=== PATIENT | male | born 1960 | race Caucasian/White ===

== ENCOUNTER 2017-10-20 10:09 | Inpatient (IN) | payer MEDICARE, MEDICAID ==
[~2017-10-20] VITALS: Ht 170.2 cm; Wt 75.3 kg
[2017-10-20] VITALS (20 sets, daily range): BP systolic 99–113; BP diastolic 68–80
[~2017-10-20 10:09] MED LIST changes: -AMOX1TAB9 PO; -CALC-515 PO; -MULT1TAB64 PO; -THIA100T20 PO
--- NOTE | 2017-10-20 10:26 | ER Report ---
History and Physical Time Seen By MD: 10:26 Hx. of Stated Complaint: BINGE DRINKING FOR APPROX 1 MONTH. SEIZURE THIS AM. UNSURE OF LAST DRINK. REPROTS THAT HE BELIEVES HE HAS NEVER A HAD A SEIZURE WHILE DETOXING. PT DENIES PAIN OR DISCOMFORT. ALERT AND ORIENTED X 2 UPON ARRIVAL. HPI/ROS CHIEF COMPLAINT: Alcohol withdrawal seizure HISTORY OF PRESENT ILLNESS: This is a 57 year old male. He has been drinking heavily for about 1 month. He drinks about 3-4 pints of Vodka daily. Last drink last night. Girlfriend was present when he fell today and started seizing. He had been very shaky this morning. He denies any pain, but does have some mild confusion. He does not think he has ever had a seizure in the past when detoxing from alcohol. He was alert and oriented x2 on arrival from EMS. His girlfriend is at bedside at this time. His sister is going to be here as well. No report of recent illnesses. He is reported to fall all the time. He denies pain, but has multiple bruises. Unknown if he has any liver problems at this time. REVIEW OF SYSTEMS: Unable to obtain other than above. Allergies: Coded Allergies: trazodone (Verified Allergy, Intermediate, RASH, 10/20/17) quetiapine (Verified Adverse Reaction, Intermediate, DONT FEEL GOOD, ) Home Meds Reported Medications Calcium Carbonate (TUMS) 200 Mg Tab.chew, 200 MG PO Y for HEARTBURN, TAB.CHEW 10/20/17 Discontinued Reported Medications Ubidecarenone (COQ-10) 100 Mg Capsule, 1 CAP PO QDAY, CAPSULE 12/19/15 Hydroxyzine Hcl (HYDROXYZINE HCL) 50 Mg Tablet, 1 TAB PO QID Y for anxiety, sleeplessness 12/19/15 Sertraline Hcl (SERTRALINE HCL) 100 Mg Tablet, 1 TAB PO QDAY, TAB 12/19/15 Past Medical/Surgical History History of "infectious asthma", arthritis, chronic alcohol use, history of surgery for left arm/wrist fracture as a child Reviewed Nurses Notes: Yes Hx Smoking: Yes Smoking Status: Former Smoker Exposure to Second Hand Smoke?: Yes Hx Substance Use Disorder: No Hx Alcohol Use: Yes (VODKA, ONE PINT DAILY) Constitutional Vital Sign - Last 24 Hours 10/20/17 10/20/1710/20/18 10/20/17 10:09 10:10 10:14 10:15 Temp 98.6 Pulse ??? 118 115 Resp 20 23 B/P (MAP) 134/82 (99) 134/82 Pulse Ox 73 89 O2 Delivery Room Air O2 Flow Rate 6.0 10/20/17 10/20/17 10/20/17 10/20/17 10:19 10:24 10:29 10:30 Pulse 110 ??? 111 Resp 24 78 38 B/P (MAP) ???/??? (7803) Pulse Ox 90 92 18 //18 //18 10/20/17 10:34 10:39 10:44 10:54 Pulse 108 95 122 111 Resp 17 14 18 B/P (MAP) 168/102 (124) Pulse Ox 83 10/20/17 10/20/17/10/20/17 10:59 11:00 11:04 11:09 Pulse 121 113 ??? Resp 14 18 B/P (MAP) 143/92 (109) Pulse Ox 93 91 10/20/10/20/17/10/20/17 11:14 11:19 11:24 11:29 Pulse ? 10/20/17 10/20/17 10/20/17 10/20/17 11:30 11:34 11:38 11:39 Pulse ??? 110 Resp 20 B/P (MAP) ???/??? (3964) 129/95 (106) Pulse Ox 93 18 10/20/17//10/20/17 11:44 11:49 11:54 11:59 Pulse 106 104 103 105 Resp 20 20 23 Pulse Ox 90 92 92 93 10/20/22 10//22 10//10/20/17 12:00 12:04 12:04 12:09 Pulse 105 105 105 Resp 22 22 18 B/P (MAP) 133/90 (104) Pulse Ox 91 91 90 10/20/18 //18 //18 10/20/17 12:14 12:15 12:19 12:20 Pulse 112 103 Resp 33 20 B/P (MAP) 117/76 (90) 117/79 (92) Pulse Ox 91 90 7/16/18 7/16/18 7/16/18 7/16/18 12:24 12:25 12:27 12:27 Pulse 104 Resp 15 B/P (MAP) 135/105 (115) Pulse Ox 91 96 O2 Delivery Mechanical Ventilator FiO2 60.0 60.0 //18 //18 //18 10/20/17 12:29 12:30 12:34 12:35 Pulse 128 108 Resp 17 18 B/P (MAP) 204/130 (154) 110/74 (86) Pulse Ox 97 92 /16/18 /16/18 7/16/18 / 12:39 12:40 12:44 12:45 Pulse 98 98 Resp 18 120 B/P (MAP) 101/63 (76) 102/69 (80) Pulse Ox 95 97 /16/18 //18 7/16/18 10/20/17 12:50 12:54 12:55 12:59 Pulse 91 90 Resp 48 18 B/P (MAP) 106/96 (99) 120/85 (97) Pulse Ox 96 94 /16/18 7/16/18 7/16/18 //18 13:00 13:04 13:05 13:09 Pulse 89 87 Resp 17 17 B/P (MAP) 99/67 (78) 105/68 (80) Pulse Ox 93 94 /16/18 7/16/18 7/16/18 //18 13:10 13:14 13:15 13:19 Pulse 90 ??? Resp 21 B/P (MAP) 102/68 (79) 111/76 (88) Pulse Ox 96 /16/18 7/16/18 7/16/18 /16/18 13:20 13:24 13:25 13:29 Pulse ? B/P (MAP) ???/??? (951) ???/??? (767) //18 /16/18 /16/18 /18 13:30 13:34 13:39 13:41 Pulse ? B/P (MAP) ???/??? (9910) 119/80 (93) 16/18 7/16/18 7/16/18 7/16/18 13:44 13:46 13:49 13:50 Pulse 84 83 Resp 19 17 B/P (MAP) 106/73 (84) 103/72 (82) Pulse Ox 96 91 16/18 7/16/18 7/16/18 7/16/18 13:54 13:55 13:59 14:00 Pulse 82 82 Resp 18 17 B/P (MAP) 105/75 (85) 106/73 (84) Pulse Ox 90 90 16/18 7/16/18 7/16/18 7/16/18 14:00 14:04 14:05 14:09 Temp 101.1 Pulse 82 82 Resp 18 17 B/P (MAP) 104/71 (82) Pulse Ox 91 90 16/18 7/16/18 7/16/18 7/16/18 14:10 14:14 14:15 14:19 Pulse 81 81 Resp 18 18 B/P (MAP) 100/69 (79) 101/69 (80) Pulse Ox 91 91 16/18 7/16/18 7/16/18 /1618 14:20 14:24 14:25 14:29 Pulse 81 81 Resp 17 18 B/P (MAP) 101/68 (79) 112/79 (90) Pulse Ox 91 92 16/18 /16/18 7/16/18 /1618 14:30 14:34 14:35 14:39 Pulse 80 79 Resp 18 18 B/P (MAP) 117/83 (94) 113/82 (92) Pulse Ox 94 94 /16/18 /16/18 /16/18 /1618 14:40 14:44 14:45 14:49 Pulse 79 79 Resp 18 17 B/P (MAP) 105/75 (85) 101/70 (80) Pulse Ox 94 94 /16/18 7/16/18 7/16/18 /16/18 14:54 14:59 15:00 15:04 Pulse 78 79 78 Resp 17 18 18 B/P (MAP) 98/70 (79) Pulse Ox 94 94 94 /16/18 7/16/18 7/16/18 /16/18 15:09 15:14 15:15 15:19 Pulse 78 78 80 Resp 18 B/P (MAP) 96/70 (79) Pulse Ox 94 94 95 Physical Exam General Appearance: The patient is alert. He is a little confused, but can answer some questions. Extremely shaky. Incontinent of stool. Eyes: Pupils are equal, round. Reactive to light. No pallor, injection or icterus. Extraocular movements are intact. ENT: Mucous membranes are diet. Normal oral mucosa. Posterior oropharynx is normal. Normal nasal mucosa, normal TM and canals. Neck: Supple and non tender. Respiratory: Lungs diminished throughout, do not appreciate rales, rhonchi or wheezing. No retractions or accessory muscle use. Cardiovascular: Regular rate and rhythm. No murmurs, gallops or rubs. Gastrointestinal: Abdomen is soft and non tender. Nondistended. No rebound or guarding. No masses or organomegaly. Normal active bowel sounds. Neurological: Alert and oriented x2. Cranial nerves with eye exam as noted above , midline tongue and symmetric palate elevation. No facial droop or weakness. Moving all extremities. No focal weakness noted. Having some increasing confusion and agitation. Skin: Warm and dry. Musculoskeletal: Extremities are nontender. No tenderness in palpation of the cervical, thoracic and lumbar spine. DIFFERENTIAL DIAGNOSIS: After history and physical exam, differential diagnosis was considered for acute alcohol withdrawal seizure, with some increasing confusion, this appears to be Delirium Tremens. Medical Decision Making Data Points Result Diagram: 10/20/17 1020 10/21/17 0535 Laboratory Hematology Test 10/20/17 10:20 10/20/17 10:30 10/20/17 14:02 Red Blood Count 5.02 M/uL (4.00-5.60) Mean Corpuscular Volume 92.8 fL (80.0-96.0) Mean Corpuscular Hemoglobin 31.5 pg (26.0-33.0) Mean Corpuscular Hemoglobin Concent 33.9 g/dL (32.0-36.0) Red Cell Distribution Width 19.7 % (11.5-14.5) Mean Platelet Volume 7.4 fL (7.2-11.1) Neutrophils (%) (Auto) 78.0 % (39.4-72.5) Lymphocytes (%) (Auto) 14.1 % (17.6-49.6) Monocytes (%) (Auto) 7.1 % (4.1-12.4) Eosinophils (%) (Auto) 0.2 % (0.4-6.7) Basophils (%) (Auto) 0.6 % (0.3-1.4) Nucleated RBC Relative Count (auto) 0.2 /100WBC Neutrophils # (Auto) 5.5 K/uL (2.0-7.4) Lymphocytes # (Auto) 1.0 K/uL (1.3-3.6) Monocytes # (Auto) 0.5 K/uL (0.3-1.0) Eosinophils # (Auto) 0.0 K/uL (0.0-0.5) Basophils # (Auto) 0.0 K/uL (0.0-0.1) Nucleated RBC Absolute Count (auto) 0.01 K/uL Thyroid Stimulating Hormone (TSH) 3.71 uIU/ml (0.46-4.68) Salicylates Level < 10 mg/L Salicylate Last Dose Date unk Acetaminophen Level < 10 ug/ml Serum Alcohol < 10 mg/dl Urine Color Yellow Urine Clarity Clear Urine pH 7.0 pH (4.8-9.5) Urine Specific [place] 1.013 Urine Protein 100 mg/dL (NEGATIVE) Urine Glucose (UA) 500 mg/dL (NEGATIVE) Urine Ketones Trace mg/dL (NEGATIVE) Urine Blood Small (NEGATIVE) Urine Nitrite Negative (NEGATIVE) Urine Bilirubin Negative (NEGATIVE) Urine Urobilinogen 2.0 mg/dL (0.2-1.9) Urine Leukocyte Esterase Negative (NEGATIVE) Urine RBC <1 /HPF (0-2/HPF) Urine WBC None /HPF (0-5/HPF) Urine Squamous Epithelial Cells None /LPF (</=FEW) Urine Bacteria Negative /HPF (NONE-FEW) Urine Mucus None /HPF (NONE-FEW) Urine Opiates Screen Negative Urine Barbiturates Screen Negative Ur Tricyclic Antidepressants Screen Negative Urine Phencyclidine Screen Negative Urine Amphetamines Screen Negative Urine Benzodiazepines Screen Negative Urine Cocaine Screen Negative Urine Cannabinoids Screen Negative Prothrombin Time 13.1 seconds (12.0-14.4) Prothromb Time International Ratio 0.99 Chemistry Test 10/20/17 10:20 7/16/18 10:30 10/20/17 14:02 White Blood Count 7.1 k/uL (4.5-11.0) Red Blood Count 5.02 M/uL (4.00-5.60) Hemoglobin 15.8 g/dL (14.0-18.0) Hematocrit 46.6 % (42.0-52.0) Mean Corpuscular Volume 92.8 fL (80.0-96.0) Mean Corpuscular Hemoglobin 31.5 pg (26.0-33.0) Mean Corpuscular Hemoglobin Concent 33.9 g/dL (32.0-36.0) Red Cell Distribution Width 19.7 % (11.5-14.5) Platelet Count 100 K/uL (150-450) Mean Platelet Volume 7.4 fL (7.2-11.1) Neutrophils (%) (Auto) 78.0 % (39.4-72.5) Lymphocytes (%) (Auto) 14.1 % (17.6-49.6) Monocytes (%) (Auto) 7.1 % (4.1-12.4) Eosinophils (%) (Auto) 0.2 % (0.4-6.7) Basophils (%) (Auto) 0.6 % (0.3-1.4) Nucleated RBC Relative Count (auto) 0.2 /100WBC Neutrophils # (Auto) 5.5 K/uL (2.0-7.4) Lymphocytes # (Auto) 1.0 K/uL (1.3-3.6) Monocytes # (Auto) 0.5 K/uL (0.3-1.0) Eosinophils # (Auto) 0.0 K/uL (0.0-0.5) Basophils # (Auto) 0.0 K/uL (0.0-0.1) Nucleated RBC Absolute Count (auto) 0.01 K/uL Thyroid Stimulating Hormone (TSH) 3.71 uIU/ml (0.46-4.68) Salicylates Level < 10 mg/L Salicylate Last Dose Date unk Acetaminophen Level < 10 ug/ml Serum Alcohol < 10 mg/dl Urine Color Yellow Urine Clarity Clear Urine pH 7.0 pH (4.8-9.5) Urine Specific [place] 1.013 Urine Protein 100 mg/dL (NEGATIVE) Urine Glucose (UA) 500 mg/dL (NEGATIVE) Urine Ketones Trace mg/dL (NEGATIVE) Urine Blood Small (NEGATIVE) Urine Nitrite Negative (NEGATIVE) Urine Bilirubin Negative (NEGATIVE) Urine Urobilinogen 2.0 mg/dL (0.2-1.9) Urine Leukocyte Esterase Negative (NEGATIVE) Urine RBC <1 /HPF (0-2/HPF) Urine WBC None /HPF (0-5/HPF) Urine Squamous Epithelial Cells None /LPF (</=FEW) Urine Bacteria Negative /HPF (NONE-FEW) Urine Mucus None /HPF (NONE-FEW) Urine Opiates Screen Negative Urine Barbiturates Screen Negative Ur Tricyclic Antidepressants Screen Negative Urine Phencyclidine Screen Negative Urine Amphetamines Screen Negative Urine Benzodiazepines Screen Negative Urine Cocaine Screen Negative Urine Cannabinoids Screen Negative Prothrombin Time 13.1 seconds (12.0-14.4) Prothromb Time International Ratio 0.99 Coagulation Test 10/20/17 14:02 Prothrombin Time 13.1 seconds Prothromb Time International Ratio 0.99 Toxicology Test 10/20/17 10:20 10/20/17 10:30 Salicylates Level < 10 mg/L Salicylate Last Dose Date unk Acetaminophen Level < 10 ug/ml Serum Alcohol < 10 mg/dl Urine Opiates Screen Negative Urine Barbiturates Screen Negative Ur Tricyclic Antidepressants Screen Negative Urine Phencyclidine Screen Negative Urine Amphetamines Screen Negative Urine Benzodiazepines Screen Negative Urine Cocaine Screen Negative Urine Cannabinoids Screen Negative Urinalysis Test 10/20/17 10:30 Urine Color Yellow Urine Clarity Clear Urine pH 7.0 pH (4.8-9.5) Urine Specific [place] 1.013 Urine Protein 100 mg/dL (NEGATIVE) Urine Glucose (UA) 500 mg/dL (NEGATIVE) Urine Ketones Trace mg/dL (NEGATIVE) Urine Blood Small (NEGATIVE) Urine Nitrite Negative (NEGATIVE) Urine Bilirubin Negative (NEGATIVE) Urine Urobilinogen 2.0 mg/dL (0.2-1.9) Urine Leukocyte Esterase Negative (NEGATIVE) Urine RBC <1 /HPF (0-2/HPF) Urine WBC None /HPF (0-5/HPF) Urine Squamous Epithelial Cells None /LPF (</=FEW) Urine Bacteria Negative /HPF (NONE-FEW) Urine Mucus None /HPF (NONE-FEW) EKG/Imaging EKG Interpretation 12 lead EKG: Rhythm: Sinus tachycardia, rate 110 [place]: normal QRS: Question Q waves inferior leads, not present in lead 2, minimal aVF but large in lead 3 ST segments: Nonspecific changes without ST elevation or depression, but there are some T-wave inversion in the V leads. Imaging EXAMINATION: Portable chest radiograph single view at 1158 hours HISTORY: Seizure, alcohol withdrawal. COMPARISON: 11/20/2016. FINDINGS: A single portable AP view of the chest is obtained. Lines/tubes: None. Lungs/pleura: There is coarse consolidation in the left mid and lower lung. Right lung is clear. No pleural effusion. Heart: Negative. Mediastinum: Negative. Bony structures/body wall: Old healed right rib fractures. IMPRESSION: Patchy consolidation in the left mid and lower lung could be due to aspiration or pneumonia. Report Dictated By: Shirley Su MD at 10/20/2017 12:22 PM EXAMINATION: CT head without IV contrast HISTORY: Seizure, alcohol withdrawal. COMPARISON: CT head from 02/18/2015. TECHNIQUE: Contiguous axial images were obtained from the skull base to the vertex without intravenous contrast. Sagittal and coronal reformatted images are also submitted. One of the following dose optimization techniques was utilized in the performance of this exam: Automated exposure control; adjustment of the mA and/ or kV according to the patient's size; or use of an iterative reconstruction technique. Specific details can be referenced in the facility's radiology CT exam operational policy. FINDINGS: Brain volume: There is mild to moderate generalized cerebral and cerebellar atrophy, with associated concordant prominence of the ventricular system. Ventricles: Normal. Acute ischemic changes: None. Hemorrhage: No acute intracranial hemorrhage. Masses/edema: None. Dash-white: Negative. White matter: A few hypodensities in the deep white matter bilaterally. Vessels: Negative. Extra-axial: Negative. Calvarium/scalp: No acute fracture. Skull base/visualized face: Negative. Visualized sinuses/orbits: Negative. IMPRESSION: 1. No acute fracture, hemorrhage or intracranial mass lesion. No CT evidence of acute infarct. 2. [id number] generalized atrophy is advanced for age. 3. Mild nonspecific white matter disease is suspicious for chronic small vessel ischemia, and is unchanged. Report Dictated By: Shirley Su MD at 10/20/2017 11:38 AM EXAMINATION: CT Cervical spine without intravenous contrast Comparison: None. History: alcohol withdrawal, falls, seizures Procedure: Multiplanar noncontrast cervical spine CT. One of the following dose optimization techniques was utilized in the performance of this exam: Automated exposure control; adjustment of the mA and/ or kV according to the patient's size; or use of an iterative reconstruction technique. Specific details can be referenced in the facility's radiology CT exam operational policy. FINDINGS: Visualized brain: More fully characterized on the earlier noncontrast head CT. Alignment: Within normal limits. Cranio-cervical junction: Alignment is within normal limits although there is moderately advanced degenerative change at the atlantodens interval. Vertebral bodies: No fracture. Posterior neural arch: Facet alignment is within normal limits with minimal facet arthropathy. No posterior neural arch fracture. Disc spaces: Moderate degenerative disc disease at C6-C7 with minimal degenerative change elsewhere. There is likely mild canal stenosis as well as moderate foraminal narrowing at C6-C7. Hardware: None. Soft tissues: Intubation. Carotid atherosclerosis. No acute findings. Visualized upper chest: Negative. IMPRESSION: 1. No cervical spine acute fracture or malalignment. 2. Cervical degenerative change as described above. 3. Carotid atherosclerosis. 4. Intubated. Report Dictated By: Edison Alston MD at 10/20/2017 2:34 PM Examination: CT chest, abdomen, and pelvis with contrast; and post processed thoracic and lumbar spine CT. Comparison: None. History: alcohol withdrawal, falls, seizures Procedure: Multiplanar contrast-enhanced imaging of the chest, abdomen, and pelvis with 75 mL intravenous Isovue 370. Additional multiplanar post processed images of the thoracic and lumbar spine are evaluated. One of the following dose optimization techniques was utilized in the performance of this exam: Automated exposure control; adjustment of the mA and/ or kV according to the patient's size; or use of an iterative reconstruction technique. Specific details can be referenced in the facility's radiology CT exam operational policy. Findings: CT chest: Mediastinum: Cardiac chamber size is normal. No pericardial effusion. Coronary calcifications. No thoracic aortic aneurysm or dissection. No mediastinal hematoma. Thyroid is unremarkable. There are a few nonspecific but likely reactive mediastinal lymph nodes. Lungs and pleura: Left upper lobe and to lesser extent left lower lobe multifocal consolidation. Pulmonary hyperexpansion with mild apical emphysema. No pneumothorax or effusion. Airways: Airways are patent with no definite evidence of intraluminal debris/ secretions. Tip of the endotracheal tube is approximately 2.5 cm above the sweetie. Diaphragm: Intact. CT abdomen and pelvis: Liver: Hepatic steatosis. Gallbladder and biliary system: Negative Spleen: Negative Pancreas: Negative Adrenal glands: Negative Kidneys and urinary bladder: No renal mass or hydronephrosis. No perinephric stranding or fluid. Urinary bladder contains a Wilkinson catheter. Vessels: Aortoiliac moderate atherosclerosis. No abdominal aortic aneurysm. No retroperitoneal hemorrhage. Portal venous system and IVC are unremarkable. Bowel and mesentery: Tiny hiatal hernia. No gastric distention. No small bowel obstruction. Appendix is unremarkable. Minimal stool in the colon. Left hemicolon moderate diverticulosis. No bowel or mesenteric inflammation. Pelvic organs: Negative. Free air/free fluid: None Lymph nodes: Negative Abdominal wall and subcutaneous tissues: Small fat-containing umbilical hernia. Small fat-containing right inguinal hernia. No acute findings. Osseous structures: Thoracic spine: Mild chronic-appearing anterior compression at the thoracolumbar junction with chronic appearing mild concavities of the T4, T5, and T6 vertebral bodies. No acute fracture or malalignment. No definite spinal canal stenosis is identified. Mild multilevel degenerative disc disease. Lumbar spine: Vertebral body height and alignment is within normal limits. Thoracolumbar, facet, and lumbosacral alignment is maintained. No fracture. Disc spaces are fairly well-maintained with no evidence of spinal canal narrowing. Pelvic ring: No fracture. Right hip mild osteoarthritis. Ribs: Chronic nonunited fracture the right posterior seventh rib. Chronic healed deformities of the right sixth, lateral seventh seventh, eighth, and ninth ribs. No acute findings. Visualized sternum, scapula, and clavicles: Negative IMPRESSION: 1. Left lung multifocal consolidation. Given the history, the findings are suspicious for an asymmetric aspiration although pneumonia could have this appearance as well. 2. No other findings of trauma or acute disease in the chest, abdomen, or pelvis. 3. Nonacute findings as described above. Report Dictated By: Edison Alston MD at 10/20/2017 2:39 PM ED Course/Re-evaluation Clinical Indication for ER IV: Hydration, IV Access ED Course After my initial evaluation, the patient was given 2mg of IV Ativan because of how severe his symptoms were. CIWA scale done immediately after this was 26. Started having more confusion, agitation, and somewhat combative. A second dose of Ativan 2mg IV was given, without improvement. A third dose was given, and he was improved, but also very sedated. He had a CT scan and an x-ray. No bleeding , fracture or mass on CT head. Chest shows patchy consolidation mid and left lower lung. Re-evaluation shows sedation and did not feel he would be able to protect his airway and having confusion. Recommended intubation to protect airway, especially given that he appears to have aspiration pneumonia already. Discussed this with his girlfriend and explained and answered all questions. Labs show mild low sodium of 132 and chloride of 94, magnesium of 1.2 otherwise electrolytes look okay. Mild elevation of liver enzymes with normal alk phos and bilirubin. Platelets down at 100, rest of CBC is normal. Negative alcohol. Procedure: Rapid sequence intubation. Indication for the procedure was airway protection, severe alcohol withdrawal. The patient was preoxygenated with 100% oxygen by bag-valve mask. The patient was given the following IV medications: Etomidate and succinylcholine. The patient was orally endotracheally intubated using the Glidescope with a 7.0 ETT. Tracheal intubation was confirmed by direct visualization; with misting on the tube; breath sounds were auscultated equally bilaterally; appropriate color change with CO2 detector. The patient was placed on the capnography monitor. Chest imaging shows ETT in good position. The procedure was performed by myself. After intubation, the patient did well, but became very agitated and combative. Had started Propofol 10mcg/kg/min drip for sedation and rapidly titrated up to 20, then 30 then 35mcg/kg/min. Also gave 4 boluses of Propofol 50mg IVP and 3 boluses of Versed 5mg IVP each. He seems more comfortable and blood pressure has come down, but not too low at this time. CT scan of the c-spine and the chest/abdomen/pelvis as well as thoracic and lumber spine was done as well and negative for acute problems. Admitted to the ICU, Dr. Villa, hospitalist. Decision to Disposition Date: Oct 20, 2017 Decision to Disposition Time: 13:15 Depart Departure Latest Vital Signs Vital Signs Date Time Temp Pulse Resp B/P (MAP) Pulse Ox O2 Delivery O2 Flow Rate FiO2 10/20/17 15:19 80 18 95 10/20/17 15:15 96/70 (79) 10/20/17 14:00 101.1 10/20/17 12:27 Mechanical Ventilator 60.0 10/20/17 10:15 6.0 Impression: Primary Impression: Alcohol withdrawal seizure Condition: Condition Unchanged Disposition: Admitted from ER Problem Qualifiers Primary Impression: Alcohol withdrawal seizure Complication of substance-induced condition: with delirium Qualified Codes: F10.231 - Alcohol dependence with withdrawal delirium LINDSEY MORA MD Oct 20, 2017 10:26
[2017-10-20] MEDS ORDERED: THIAMINE HCL(*) 200 MG/2 ML IN 100 MG, FOLIC ACID(*) 50 MG/10 ML INJ 1 MG, MULTIVITAMIN... IV ONE (10:48)
[2017-10-20] MEDS ORDERED: LORazepam 2 MG/ML VIAL ONE ×2 (10:49→11:43)
[2017-10-20] MEDS ORDERED: LORazepam 2 MG/ML VIAL IVP ONE (10:50)
[2017-10-20 11:03] LABS: PLATELET COUNT, AUTOMATED 100 K/uL (150-450)
--- NOTE | 2017-10-20 11:48 | RADIOLOGY IMAGING REPORT ---
FACILITY: [facility] PATIENT NAME: Richar Bermeo : 1960 MR: [id number] V: [id number] EXAM DATE: ORDERING PHYSICIAN: LINDSEY MORA TECHNOLOGIST: [place] [facility] [place] Patient: Richar Bermeo : 1960 Visit/Account:[id number] Date of Sevice: 10/20/2017 EXAMINATION: CT head without IV contrast HISTORY: Seizure, alcohol withdrawal. COMPARISON: CT head from 02/18/2015. TECHNIQUE: Contiguous axial images were obtained from the skull base to the vertex without intraven ous contrast. Sagittal and coronal reformatted images are also submitted. One of the following dose optimization techniques was utilized in the performance of this exam: Autom ated exposure control; adjustment of the mA and/or kV according to the patient's size; or use of an i terative reconstruction technique. Specific details can be referenced in the facility's radiology C T exam operational policy. FINDINGS: Brain volume: There is mild to moderate generalized cerebral and cerebellar atrophy, with associated concordant prominence of the ventricular system. Ventricles: Normal. Acute ischemic changes: None. Hemorrhage: No acute intracranial hemorrhage. Masses/edema: None. Dash-white: Negative. White matter: A few hypodensities in the deep white matter bilaterally. Vessels: Negative. Extra-axial: Negative. Calvarium/scalp: No acute fracture. Skull base/visualized face: Negative. Visualized sinuses/orbits: Negative. IMPRESSION: 1. No acute fracture, hemorrhage or intracranial mass lesion. No CT evidence of acute infarct. 2. Qcja-ny-peajxzcj generalized atrophy is advanced for age. 3. Mild nonspecific white matter disease is suspicious for chronic small vessel ischemia, and is unch anged. Report Dictated By: Shirley Su MD at 10/20/2017 11:38 AM Report E-Signed By: Shirley Su MD at 10/20/2017 11:43 AM WSN:[email or web address]
--- NOTE | 2017-10-20 11:52 | EKG ---
[facility] PATIENT NAME: HONEY FORD : [id number] MR: [id number] V: [id number] EXAM DATE: ORDERING PHYSICIAN: LINDSEY MORA TECHNOLOGIST: JANA Test Reason : SIEZURE Blood Pressure : / mmHG Vent. Rate : 110 BPM Atrial Rate : 110 BPM P-R Int : 148 ms QRS Dur : 092 ms QT Int : 342 ms P-R-T Axes : 062 017 066 degrees QTc Int : 462 ms Sinus tachycardia RSR' or QR pattern in V1 suggests right ventricular conduction delay Inferior infarct , age undetermined T wave abnormality, consider anterior ischemia Abnormal ECG No previous ECGs available Referred By: ABBY Confirmed By:
--- NOTE | 2017-10-20 12:28 | RADIOLOGY IMAGING REPORT ---
FACILITY: [facility] PATIENT NAME: Richar Bermeo : 1960 MR: [id number] V: [id number] EXAM DATE: ORDERING PHYSICIAN: LINDSEY MORA TECHNOLOGIST: Location: [facility] - [place] Patient: Richar Bermeo : 1960 Visit/Account:[id number] Date of Sevice: 10/20/2017 EXAMINATION: Portable chest radiograph single view at 1158 hours HISTORY: Seizure, alcohol withdrawal. COMPARISON: 11/20/2016. FINDINGS: A single portable AP view of the chest is obtained. Lines/tubes: None. Lungs/pleura: There is coarse consolidation in the left mid and lower lung. Right lung is clear. No pleural effusion. Heart: Negative. Mediastinum: Negative. Bony structures/body wall: Old healed right rib fractures. IMPRESSION: Patchy consolidation in the left mid and lower lung could be due to aspiration or pneumonia. Report Dictated By: Shirley Su MD at 10/20/2017 12:22 PM Report E-Signed By: Shirley Su MD at 10/20/2017 12:23 PM WSN:[email or web address]
[2017-10-20] MEDS ORDERED: MIDAZOLAM 50 MG/10 ML VIAL 250 MG in NS(*) 0.9% 250 ML BAG 200 ML IV PRN ×2 (12:40→13:05)
[2017-10-20] MEDS ORDERED: IOPAMIDOL 76% 100 ML INFUS BTL 100 ML ONE (12:55)
[2017-10-20] MEDS ORDERED: MAGNESIUM SUL* 2 GM/50 ML IVPB 50 ML IVPB ONE (13:45)
[2017-10-20 14:19] LABS: INR 0.99
--- NOTE | 2017-10-20 14:43 | RADIOLOGY IMAGING REPORT ---
FACILITY: [facility] PATIENT NAME: Richar Bermeo : 1960 MR: [id number] V: [id number] EXAM DATE: ORDERING PHYSICIAN: LINDSEY MORA TECHNOLOGIST: Location: [facility] Patient: Richar Bermeo : 1960 Visit/Account:[id number] Date of Sevice: 10/20/2017 EXAMINATION: CT Cervical spine without intravenous contrast Comparison: None. History: alcohol withdrawal, falls, seizures Procedure: Multiplanar noncontrast cervical spine CT. One of the following dose optimization techniques was utilized in the performance of this exam: Autom ated exposure control; adjustment of the mA and/or kV according to the patient's size; or use of an i terative reconstruction technique. Specific details can be referenced in the facility's radiology C T exam operational policy. FINDINGS: Visualized brain: More fully characterized on the earlier noncontrast head CT. Alignment: Within normal limits. Cranio-cervical junction: Alignment is within normal limits although there is moderately advanced deg enerative change at the atlantodens interval. Vertebral bodies: No fracture. Posterior neural arch: Facet alignment is within normal limits with minimal facet arthropathy. No pos terior neural arch fracture. Disc spaces: Moderate degenerative disc disease at C6-C7 with minimal degenerative change elsewhere. There is likely mild canal stenosis as well as moderate foraminal narrowing at C6-C7. Hardware: None. Soft tissues: Intubation. Carotid atherosclerosis. No acute findings. Visualized upper chest: Negative. IMPRESSION: 1. No cervical spine acute fracture or malalignment. 2. Cervical degenerative change as described above. 3. Carotid atherosclerosis. 4. Intubated. Report Dictated By: Edison Alston MD at 10/20/2017 2:34 PM Report E-Signed By: Edison Alston MD at 10/20/2017 2:38 PM WSN:[id number]
--- NOTE | 2017-10-20 14:58 | RADIOLOGY IMAGING REPORT ---
FACILITY: [facility] [place] PATIENT NAME: Richar Bermeo : 1960 MR: [id number] V: [id number] EXAM DATE: ORDERING PHYSICIAN: LINDSEY MORA TECHNOLOGIST: Location: [facility] [place] Patient: Richar Bermeo : 1960 Visit/Account:[id number] Date of Sevice: 10/20/2017 Examination: CT chest, abdomen, and pelvis with contrast; and post processed thoracic and lumbar spin e CT. Comparison: None. History: alcohol withdrawal, falls, seizures Procedure: Multiplanar contrast-enhanced imaging of the chest, abdomen, and pelvis with 75 mL intrave nous Isovue 370. Additional multiplanar post processed images of the thoracic and lumbar spine are ev aluated. One of the following dose optimization techniques was utilized in the performance of this exam: Autom ated exposure control; adjustment of the mA and/or kV according to the patient's size; or use of an i terative reconstruction technique. Specific details can be referenced in the facility's radiology C T exam operational policy. Findings: CT chest: Mediastinum: Cardiac chamber size is normal. No pericardial effusion. Coronary calcifications. No tho racic aortic aneurysm or dissection. No mediastinal hematoma. Thyroid is unremarkable. There are a fe w nonspecific but likely reactive mediastinal lymph nodes. Lungs and pleura: Left upper lobe and to lesser extent left lower lobe multifocal consolidation. Pulm onary hyperexpansion with mild apical emphysema. No pneumothorax or effusion. Airways: Airways are patent with no definite evidence of intraluminal debris/secretions. Tip of the e ndotracheal tube is approximately 2.5 cm above the sweetie. Diaphragm: Intact. CT abdomen and pelvis: Liver: Hepatic steatosis. Gallbladder and biliary system: Negative Spleen: Negative Pancreas: Negative Adrenal glands: Negative Kidneys and urinary bladder: No renal mass or hydronephrosis. No perinephric stranding or fluid. Urin maryana bladder contains a Wilkinson catheter. Vessels: Aortoiliac moderate atherosclerosis. No abdominal aortic aneurysm. No retroperitoneal hemorr alysa. Portal venous system and IVC are unremarkable. Bowel and mesentery: Tiny hiatal hernia. No gastric distention. No small bowel obstruction. Appendix is unremarkable. Minimal stool in the colon. Left hemicolon moderate diverticulosis. No bowel or mese nteric inflammation. Pelvic organs: Negative. Free air/free fluid: None Lymph nodes: Negative Abdominal wall and subcutaneous tissues: Small fat-containing umbilical hernia. Small fat-containing right inguinal hernia. No acute findings. Osseous structures: Thoracic spine: Mild chronic-appearing anterior compression at the thoracolumbar junction with chroni c appearing mild concavities of the T4, T5, and T6 vertebral bodies. No acute fracture or malalignmen t. No definite spinal canal stenosis is identified. Mild multilevel degenerative disc disease. Lumbar spine: Vertebral body height and alignment is within normal limits. Thoracolumbar, facet, and lumbosacral alignment is maintained. No fracture. Disc spaces are fairly well-maintained with no evid ence of spinal canal narrowing. Pelvic ring: No fracture. Right hip mild osteoarthritis. Ribs: Chronic nonunited fracture the right posterior seventh rib. Chronic healed deformities of the r ight sixth, lateral seventh seventh, eighth, and ninth ribs. No acute findings. Visualized sternum, scapula, and clavicles: Negative IMPRESSION: 1. Left lung multifocal consolidation. Given the history, the findings are suspicious for an asymmetr ic aspiration although pneumonia could have this appearance as well. 2. No other findings of trauma or acute disease in the chest, abdomen, or pelvis. 3. Nonacute findings as described above. Report Dictated By: Edison Alston MD at 10/20/2017 2:39 PM Report E-Signed By: Edison Alston MD at 10/20/2017 2:53 PM WSN:[id number]
--- NOTE | 2017-10-20 14:59 | RADIOLOGY IMAGING REPORT ---
FACILITY: [facility] PATIENT NAME: Richar Bermeo : 1960 MR: [id number] V: [id number] EXAM DATE: ORDERING PHYSICIAN: LINDSEY MORA TECHNOLOGIST: Location: [facility] [place] Patient: Richar Bermeo : 1960 Visit/Account:[id number] Date of Sevice: 10/20/2017 Examination: CT chest, abdomen, and pelvis with contrast; and post processed thoracic and lumbar spin e CT. Comparison: None. History: alcohol withdrawal, falls, seizures Procedure: Multiplanar contrast-enhanced imaging of the chest, abdomen, and pelvis with 75 mL intrave nous Isovue 370. Additional multiplanar post processed images of the thoracic and lumbar spine are ev aluated. One of the following dose optimization techniques was utilized in the performance of this exam: Autom ated exposure control; adjustment of the mA and/or kV according to the patient's size; or use of an i terative reconstruction technique. Specific details can be referenced in the facility's radiology C T exam operational policy. Findings: CT chest: Mediastinum: Cardiac chamber size is normal. No pericardial effusion. Coronary calcifications. No tho racic aortic aneurysm or dissection. No mediastinal hematoma. Thyroid is unremarkable. There are a fe w nonspecific but likely reactive mediastinal lymph nodes. Lungs and pleura: Left upper lobe and to lesser extent left lower lobe multifocal consolidation. Pulm onary hyperexpansion with mild apical emphysema. No pneumothorax or effusion. Airways: Airways are patent with no definite evidence of intraluminal debris/secretions. Tip of the e ndotracheal tube is approximately 2.5 cm above the sweetie. Diaphragm: Intact. CT abdomen and pelvis: Liver: Hepatic steatosis. Gallbladder and biliary system: Negative Spleen: Negative Pancreas: Negative Adrenal glands: Negative Kidneys and urinary bladder: No renal mass or hydronephrosis. No perinephric stranding or fluid. Urin maryana bladder contains a Wilkinson catheter. Vessels: Aortoiliac moderate atherosclerosis. No abdominal aortic aneurysm. No retroperitoneal hemorr alysa. Portal venous system and IVC are unremarkable. Bowel and mesentery: Tiny hiatal hernia. No gastric distention. No small bowel obstruction. Appendix is unremarkable. Minimal stool in the colon. Left hemicolon moderate diverticulosis. No bowel or mese nteric inflammation. Pelvic organs: Negative. Free air/free fluid: None Lymph nodes: Negative Abdominal wall and subcutaneous tissues: Small fat-containing umbilical hernia. Small fat-containing right inguinal hernia. No acute findings. Osseous structures: Thoracic spine: Mild chronic-appearing anterior compression at the thoracolumbar junction with chroni c appearing mild concavities of the T4, T5, and T6 vertebral bodies. No acute fracture or malalignmen t. No definite spinal canal stenosis is identified. Mild multilevel degenerative disc disease. Lumbar spine: Vertebral body height and alignment is within normal limits. Thoracolumbar, facet, and lumbosacral alignment is maintained. No fracture. Disc spaces are fairly well-maintained with no evid ence of spinal canal narrowing. Pelvic ring: No fracture. Right hip mild osteoarthritis. Ribs: Chronic nonunited fracture the right posterior seventh rib. Chronic healed deformities of the r ight sixth, lateral seventh seventh, eighth, and ninth ribs. No acute findings. Visualized sternum, scapula, and clavicles: Negative IMPRESSION: 1. Left lung multifocal consolidation. Given the history, the findings are suspicious for an asymmetr ic aspiration although pneumonia could have this appearance as well. 2. No other findings of trauma or acute disease in the chest, abdomen, or pelvis. 3. Nonacute findings as described above. Report Dictated By: Edison Alston MD at 10/20/2017 2:39 PM Report E-Signed By: Edison Alston MD at 10/20/2017 2:53 PM WSN:[id number]
--- NOTE | 2017-10-20 14:59 | RADIOLOGY IMAGING REPORT ---
FACILITY: [facility] PATIENT NAME: Richar Bermeo : 1960 MR: [id number] V: [id number] EXAM DATE: ORDERING PHYSICIAN: LINDSEY MORA TECHNOLOGIST: Location: [facility] - [place] Patient: Richar Bermeo : 1960 Visit/Account:[id number] Date of Sevice: 10/20/2017 Examination: CT chest, abdomen, and pelvis with contrast; and post processed thoracic and lumbar spin e CT. Comparison: None. History: alcohol withdrawal, falls, seizures Procedure: Multiplanar contrast-enhanced imaging of the chest, abdomen, and pelvis with 75 mL intrave nous Isovue 370. Additional multiplanar post processed images of the thoracic and lumbar spine are ev aluated. One of the following dose optimization techniques was utilized in the performance of this exam: Autom ated exposure control; adjustment of the mA and/or kV according to the patient's size; or use of an i terative reconstruction technique. Specific details can be referenced in the facility's radiology C T exam operational policy. Findings: CT chest: Mediastinum: Cardiac chamber size is normal. No pericardial effusion. Coronary calcifications. No tho racic aortic aneurysm or dissection. No mediastinal hematoma. Thyroid is unremarkable. There are a fe w nonspecific but likely reactive mediastinal lymph nodes. Lungs and pleura: Left upper lobe and to lesser extent left lower lobe multifocal consolidation. Pulm onary hyperexpansion with mild apical emphysema. No pneumothorax or effusion. Airways: Airways are patent with no definite evidence of intraluminal debris/secretions. Tip of the e ndotracheal tube is approximately 2.5 cm above the sweetie. Diaphragm: Intact. CT abdomen and pelvis: Liver: Hepatic steatosis. Gallbladder and biliary system: Negative Spleen: Negative Pancreas: Negative Adrenal glands: Negative Kidneys and urinary bladder: No renal mass or hydronephrosis. No perinephric stranding or fluid. Urin maryana bladder contains a Wilkinson catheter. Vessels: Aortoiliac moderate atherosclerosis. No abdominal aortic aneurysm. No retroperitoneal hemorr alysa. Portal venous system and IVC are unremarkable. Bowel and mesentery: Tiny hiatal hernia. No gastric distention. No small bowel obstruction. Appendix is unremarkable. Minimal stool in the colon. Left hemicolon moderate diverticulosis. No bowel or mese nteric inflammation. Pelvic organs: Negative. Free air/free fluid: None Lymph nodes: Negative Abdominal wall and subcutaneous tissues: Small fat-containing umbilical hernia. Small fat-containing right inguinal hernia. No acute findings. Osseous structures: Thoracic spine: Mild chronic-appearing anterior compression at the thoracolumbar junction with chroni c appearing mild concavities of the T4, T5, and T6 vertebral bodies. No acute fracture or malalignmen t. No definite spinal canal stenosis is identified. Mild multilevel degenerative disc disease. Lumbar spine: Vertebral body height and alignment is within normal limits. Thoracolumbar, facet, and lumbosacral alignment is maintained. No fracture. Disc spaces are fairly well-maintained with no evid ence of spinal canal narrowing. Pelvic ring: No fracture. Right hip mild osteoarthritis. Ribs: Chronic nonunited fracture the right posterior seventh rib. Chronic healed deformities of the r ight sixth, lateral seventh seventh, eighth, and ninth ribs. No acute findings. Visualized sternum, scapula, and clavicles: Negative IMPRESSION: 1. Left lung multifocal consolidation. Given the history, the findings are suspicious for an asymmetr ic aspiration although pneumonia could have this appearance as well. 2. No other findings of trauma or acute disease in the chest, abdomen, or pelvis. 3. Nonacute findings as described above. Report Dictated By: Edison Alston MD at 10/20/2017 2:39 PM Report E-Signed By: Edison Alston MD at 10/20/2017 2:53 PM WSN:[id number]
[2017-10-20] MEDS ORDERED: PROPOFOL(*)1000 MG/100 ML VIAL 100 ML ONE (16:40)
[2017-10-20] MEDS ORDERED: MIDAZOLAM 50 MG/10 ML VIAL 100 MG in NS(*) 0.9% 100 ML BAG 80 ML IV PRN (16:59)
[2017-10-20] MEDS ORDERED: FLUSH 10 ML SYR IVP PRN (17:00)
[2017-10-20] MEDS ORDERED: ONDANSETRON 4 MG/2 ML VIAL IVP PRN (17:00)
[2017-10-20] MEDS ORDERED: INFLUENZA VIRUS VAC 0.5 ML SYR IM ONLY ONE (17:00)
[2017-10-20] MEDS: FOLIC ACID 1 MG TAB PO SCH (17:00)
[2017-10-20] MEDS ORDERED: ACETAMINOPHEN 325 MG TAB PO PRN (17:00)
[2017-10-20] MEDS ORDERED: LORazepam 2 MG/ML VIAL IM PRN (17:00)
[2017-10-20] MEDS ORDERED: INSULIN HUM LISPRO 100 UN/ML 3 ML VIAL SUBQ PRN (17:00)
[2017-10-20] MEDS ORDERED: LORazepam 2 MG/ML VIAL IVP PRN (17:00)
[2017-10-20] MEDS ORDERED: CALC-515 PO (17:24)
[2017-10-20] MEDS ORDERED: NS(*) 0.9% 1000 ML BAG 1,000 ML ONE (17:59)
[2017-10-20] MEDS: NS(*) 0.9% 1000 ML BAG 1,000 ML IV PRN (18:19)
[2017-10-20] MEDS: THIAMINE HCL 200 MG/2 ML INJ IVP SCH (18:23)
--- NOTE | 2017-10-20 18:27 | History & Physical ---
History of Present Illness Chief Complaint Seizure alcohol withdrawal History of Present Illness 57 Y male presented to ER after having episode of seizure like activity. Reports drinking daily 3 pints vodka, last drink was believed to be day before admission. CIWA score was in 20's in ER after receiving 1mg Ativan and became very agitated. Patient ended up being intubated and sedated in the ER 2/2 agitation and high CIWA scores. Given history of fall and patient limited ability to give history CT head and spine were negative for any acute process. CXR showed possible infiltrate. Past medical history and review of systems unable to be obtained 2/2 sedation and intubation. History Unable To Obtain Past Medical: Unable to Obtain/Update (2/2 mental status) Problems: Home Meds Reported Medications Calcium Carbonate (TUMS) 200 Mg Tab.chew, 200 MG PO Y for HEARTBURN, TAB.CHEW 10/20/17 Discontinued Reported Medications Ubidecarenone (COQ-10) 100 Mg Capsule, 1 CAP PO QDAY, CAPSULE 12/19/15 Hydroxyzine Hcl (HYDROXYZINE HCL) 50 Mg Tablet, 1 TAB PO QID Y for anxiety, sleeplessness 12/19/15 Sertraline Hcl (SERTRALINE HCL) 100 Mg Tablet, 1 TAB PO QDAY, TAB 12/19/15 Allergies: Coded Allergies: trazodone (Verified Allergy, Intermediate, RASH, 11/20/16) quetiapine (Verified Adverse Reaction, Intermediate, DONT FEEL GOOD, ) Patient History: FH: COPD (chronic obstructive pulmonary disease) FATHER, , Age:73 FH: coronary artery disease MOTHER (KIDNEY FAILURE 2014), , Age:83 FH: hyperlipidemia MOTHER (KIDNEY FAILURE 2014), , Age:83 FH: renal failure MOTHER (KIDNEY FAILURE 2014), , Age:83 FH: thyroid disease MOTHER (KIDNEY FAILURE 2014), , Age:83 FHx: kidney cancer Transient ischemic attacks Hx Smoking: Yes (SMOKES WHEN HE DRINKS) Smoking Status: Former Smoker Exposure to Second Hand Smoke?: No Tobacco Used: Cigarette Caffeine Intake: Coffee, Tea Caffeine/Cups Per Day: 4 c. daily Hx Alcohol Use: Yes (VODKA 3-4 PINTS A DAY) Alcohol Used: Liquor Alcohol Withdrawl Symptoms: Tremors, Sweating, Agitation, Nausea/Vomiting, Headache Hx Substance Use Disorder: No Social Drug Use: Never Review of Systems Other Unable to obtain 2/2 intubation and sedation. Exam Vital Signs Vital Signs Date Time Temp Pulse Resp B/P (MAP) Pulse Ox O2 Delivery O2 Flow Rate FiO2 10/20/17 16:21 77 10/20/17 16:17 45.0 10/20/17 15:34 17 96 10/20/17 15:30 107/76 (86) 10/20/17 12:27 Mechanical Ventilator 10/20/17 10:15 6.0 10/20/17 10:10 98.6 General Appearance: Afebrile, Other (sedated) Eyes: Other (PERRL) ENT: Normal Neck: No Masses Cardiovascular: Normal Rhythm & Peripheral Pulses Respiratory: Clear to Auscultation Chest: No Masses GI: Abd Soft and Non-Tender : Other (possible herpetic lesion on scrotum) Lymph: No Adenopathy Musculoskeletal: Other (normal inspection) Extremities: Soft and Non Tender, Warm, Pulses, Perfused, No Edema Integumentary: Other (fine papular rash over legs, chest, abdomen) Psych: Other (sedated) Medical Decision Making Data Points Result Diagram: 10/20/17 1020 10/20/17 1020 Item Value Date Time Serum Alcohol < 10 mg/dl 10/20/17 1020 Assessment and Plan Problems: (1) Acute respiratory failure Assessment & Plan: Intubated for airway protection, on propofol and versed for sedation. Leave on SIMV overnight and begin weaning protocol tomorrow am. (2) Alcohol withdrawal seizure Assessment & Plan: Reported seizure activity prior to arrival. On CIWA, currently sedated with propofol and Versed, which also treats alcohol withdrawal. Will transition medications after extubation to Valium and Ativan. (3) Hyperglycemia Assessment & Plan: No known Hx of diabetes. Sliding scale insulin, Accuchecks initiated and Hgb A1C pending. (4) Hyponatremia Assessment & Plan: Likely 2/2 low solute intake from poor intake in alcoholism. IV NS ordered should respond to infusion. (5) Thrombocytopenia Status: Acute Assessment & Plan: Likely 2/2 alcoholism and some liver disfunction. Coagulation within normal limits and LFT mildly elevated. (6) Alcoholism Status: Acute Assessment & Plan: Skin Carver cessation, psych social worker consulted. Thiamine and folate ordered. (7) Hypomagnesemia Assessment & Plan: Likely 2/2 alcoholism, replaced IV. Recheck in am. Venous Thromboembolism Antithrombotics Is Pt On Any Antithrombotics?: Yes Exam Sepsis Risk: No Definite Risk SONNY FONG DO Oct 20, 2017 17:46
--- NOTE | 2017-10-20 20:23 | RADIOLOGY IMAGING REPORT ---
FACILITY: [facility] PATIENT NAME: Richar Bermeo : 1960 MR: [id number] V: [id number] EXAM DATE: ORDERING PHYSICIAN: SONNY SYLVESTER TECHNOLOGIST: Location: [facility] Patient: Richar Bermeo : 1960 Visit/Account:[id number] Date of Sevice: 10/20/2017 AP CHEST 10/20/2017 6:35 PM. INDICATION: TUBE PLACEMENT COMPARISON: Same-day radiograph. FINDINGS/IMPRESSION: Endotracheal tube terminates in the mid thoracic trachea. Esophagogastric tube enters the stomach, t ip is not imaged. Lungs are unchanged. Heart size is unchanged. Report Dictated By: Pratik Lara MD at 10/20/2017 8:18 PM Report E-Signed By: Pratik Lara MD at 10/20/2017 8:19 PM WSN:[email or web address]
[2017-10-20] MEDS: ORAL SUCTION/CHLORHX/SWAB KIT MT SCH (21:17)
[2017-10-20] MEDS: PROPOFOL(*)1000 MG/100 ML VIAL 100 ML IV PRN (21:18)
[2017-10-20] MEDS ORDERED: PROPOFOL EMUL 10MG/ML 20 ML VL IVP ONE (21:50)
[2017-10-20] MEDS ORDERED: SUCCINYLCHOL CHL 200MG/10ML VL IVP ONE (21:50)
[2017-10-20] MEDS ORDERED: MIDAZOLAM 1 MG/1 ML 10 ML IVP ONE (21:50)
[2017-10-20] MEDS ORDERED: ETOMIDATE 20 MG/10 ML VIAL IVP ONE (21:50)
--- NOTE | 2017-10-20 22:53 | RADIOLOGY IMAGING REPORT ---
FACILITY: [facility] PATIENT NAME: Richar Bermeo : 1960 MR: [id number] V: [id number] EXAM DATE: ORDERING PHYSICIAN: SONNY SYLVESTER TECHNOLOGIST: Location: [facility] [place] Patient: Richar Bermeo : 1960 Visit/Account:[id number] Date of Sevice: 10/20/2017 AP CHEST 10/20/2017 4:59 PM. INDICATION: Intubated COMPARISON: Same-day radiograph. FINDINGS/IMPRESSION: Endotracheal tube terminates in the mid to upper thoracic trachea 6 cm above the sweetie. Left lung o pacification is unchanged. No pleural effusion or pneumothorax. Heart size is unchanged. Report Dictated By: Pratik Lara MD at 10/20/2017 10:48 PM Report E-Signed By: Pratik Lara MD at 10/20/2017 10:49 PM WSN:[id number]
[2017-10-21] VITALS (52 sets, daily range): BP systolic 91–142; BP diastolic 58–104; Ht 170.2 cm; Wt 75.3 kg
[2017-10-21] MEDS: PROPOFOL(*)1000 MG/100 ML VIAL 100 ML IV PRN ×6 (01:12→21:16)
[2017-10-21] MEDS: NS(*) 0.9% 1000 ML BAG 1,000 ML IV PRN ×3 (01:12→21:54)
--- NOTE | 2017-10-21 07:05 | RADIOLOGY IMAGING REPORT ---
FACILITY: [facility] - [place], [place] PATIENT NAME: Richar Bermeo : 1960 MR: [id number] V: [id number] EXAM DATE: ORDERING PHYSICIAN: SONNY SYLVESTER TECHNOLOGIST: Location: [facility] Patient: Richar Bermeo : 1960 Visit/Account:[id number] Date of Sevice: 10/21/2017 CHEST SINGLE AP COMPARISONS: Single view chest dated October 20, 2017 ADDITIONAL PERTINENT HISTORY: Patient intubated FINDINGS: Life-support: Endotracheal tube and NG tube in good position. Cardiomediastinal silhouette: Negative. Pulmonary vasculature: Negative. Lung jenkins: Patchy areas of infiltrate involving the left mid and lower lung jenkins. Stable from pr evious exam. Pleural spaces: Findings of a small left-sided pleural effusion. Osseous structures: Negative. Surrounding soft tissues: Negative. IMPRESSION: 1. Patchy areas of infiltrate involving the left lower lobe. 2. Findings of a small left-sided pleural effusion. 3. Stable life support. Report Dictated By: Hernan Wei MD at 10/21/2017 7:01 AM Report E-Signed By: Hernan Wei MD at 10/21/2017 7:03 AM WSN:[id number]
[2017-10-21] MEDS: ENOXAPARIN 40 MG/0.4ML SYR SC SCH (08:16)
[2017-10-21] MEDS: FOLIC ACID 1 MG TAB PO SCH (08:17)
[2017-10-21] MEDS: THIAMINE HCL 200 MG/2 ML INJ IVP SCH (08:17)
[2017-10-21] MEDS: ORAL SUCTION/CHLORHX/SWAB KIT MT SCH ×2 (08:17→20:26)
[2017-10-21] MEDS ORDERED: HYPROMELLOSE 0.4% LUB 15ML BTL OU PRN (09:20)
[2017-10-21] MEDS: PANTOPRAZOLE SOD 40 MG IV VIAL IVP SCH (10:22)
[2017-10-21] MEDS: KCL (*) 20 MEQ/100 ML PREMIX 100 ML IV SCH ×2 (10:22→12:30)
--- NOTE | 2017-10-21 11:59 | Hospitalist Progress Note ---
Subjective Progress Notes Subjective No concerns from the o/n staff. He is on propofol and Versed for sedation. Physical Exam Vital Signs Date Time Temp Pulse Resp B/P (MAP) Pulse Ox O2 Delivery O2 Flow Rate FiO2 10/21/17 11:42 90 Mechanical Ventilator 45.0 10/21/17 11:03 97.8 21 142/91 (108) 10/21/17 10:30 68 10/20/17 10:15 6.0 Intake and Output 10/22/17 07:00 Intake Total 60 ml Output Total 425 ml Balance -365 ml Tube Irrigant 60 ml Output Urine Total 425 ml General Appearance: Other (Intubated and sedated) Neuro: Other (Grimaces and resists eye opening symmetrically. ) Cardiovascular: Regular Rate and Rhythm Respiratory: Clear to Auscultation GI: Soft and Non-Tender Extremities: No Edema Integumentary: Other (Diffuse macular 1-2mm erythematous rash across entire body except face (apparently long standing)) Result Diagram: 10/20/17 1020 10/21/17 0535 Assessment and Plan Problems: (1) Acute respiratory failure Assessment & Plan: Intubated for airway protection, on propofol and versed for sedation. He is still requiring a lot of sedation, so will continue current treatment. He is ventilating well on minimal settings. Plateau pressures are minimal. He is on an FiO2 of 45%. See below. (2) Aspiration pneumonia Status: Acute Assessment & Plan: He had a seizure/seizures prior to admission. CXR shows a left basilar infiltrate. She did have secretions from the ET tube that looked bilious, like from his NG. Will start Unasyn. (3) Alcohol withdrawal seizure Assessment & Plan: Reported seizure activity prior to arrival. On CIWA, currently sedated with propofol and Versed, which also treats alcohol withdrawal. Will transition medications after extubation to Valium and Ativan. (4) Hyperglycemia Assessment & Plan: No known Hx of diabetes. Glucose wnl. Hgb A1C 5.5. Will stop Sliding scale insulin, Accuchecks. (5) Hyponatremia Assessment & Plan: Likely 2/2 low solute intake from poor intake in alcoholism. IV NS ordered should respond to infusion. (6) Thrombocytopenia Status: Acute Assessment & Plan: Likely 2/2 alcoholism and some liver disfunction. Coagulation within normal limits and LFT mildly elevated. (7) Alcoholism Status: Acute Assessment & Plan: Gutter Hanger cessation, social studies teacher consulted. Thiamine and folate ordered. (8) Hypomagnesemia Assessment & Plan: Likely 2/2 alcoholism, replaced IV. Will follow. Exam Sepsis Risk: No Definite Risk Problem Qualifiers (1) Alcohol withdrawal seizure: Complication of substance-induced condition: with delirium Qualified Codes: F10.231 - Alcohol dependence with withdrawal delirium MICHAEL MILES MD Oct 21, 2017 11:59
[2017-10-21] MEDS ORDERED: AMPICILLIN/SULBACT (*) 3 GM VL 3 GM in NS(*) 0.9% 100 ML BAG 100 ML IVPB SCH (12:00)
[2017-10-21] MEDS: MIDAZOLAM 50 MG/10 ML VIAL 250 MG in NS(*) 0.9% 250 ML BAG 200 ML IV PRN (13:28)
[2017-10-21] MEDS: AMPICILLIN/SULBACT (*) 3 GM VL 3 GM in NS(*) 0.9% 100 ML BAG 100 ML IVPB SCH ×2 (15:04→19:59)
[2017-10-21 15:07] LABS: PLATELET COUNT, AUTOMATED 78 K/uL (150-450)
[2017-10-21] MEDS ORDERED: NS(*) 0.9% 500 ML BAG 500 ML ONE (15:13)
--- NOTE | 2017-10-21 15:25 | RADIOLOGY IMAGING REPORT ---
FACILITY: [facility] - [place] PATIENT NAME: Richar Bermeo : 1960 MR: [id number] V: [id number] EXAM DATE: ORDERING PHYSICIAN: MICHAEL MILES TECHNOLOGIST: Location: [facility] - [place] Patient: Richar Bermeo : 1960 Visit/Account:[id number] Date of Sevice: 10/21/2017 CHEST SINGLE AP Indication: Right IJ central line placement.. Comparison: Chest radiograph from October 21, 2017 at 5:30 AM Findings: Right internal jugular central line with tip projecting over the proximal SVC. Endotracheal tube and nasogastric tubes are grossly unchanged. Heart size within normal limits. Heterogeneous consolidation/infiltrate within the left mid/lower lung, not significant changed. Mild vascular congestion and bronchial wall thickening. No pneumothorax or pleural effusion. IMPRESSION: 1. Interval placement of right IJ central line with tip projecting over the proximal SVC. 2. Otherwise stable chest. Report Dictated By: Avila Price MD at 10/21/2017 3:19 PM Report E-Signed By: Avila Price MD at 10/21/2017 3:21 PM WSN:[id number]
--- NOTE | 2017-10-21 16:35 | Procedure Note ---
Central Line Procedure Note Indication for Central Line: IV access Consent Signed: Yes (Via telephone consent from his sister Lyric Muller) Central Line Lumen: Triple Central Line Procedure: Chlorhexidine Prep Central Line Position: R Internal Jugular Anesthesia Used: 1% Lidocaine CC's of Anesthesia: 3 Complications: None Central Line Post Position: Sutured, Confirmed Blood Return, Position Confirmed w/CXR Comment The line was placed with US guidance. Seldinger technique was used. The line was placed at 17cm from the skin. MICHAEL MILES MD Oct 21, 2017 16:35
--- NOTE | 2017-10-21 16:51 | Medical Nutrition Therapy ---
Nutrition Anthropometrics Height (Inches): 67.00 Height (Calculated Centimeters: 170.835125 Weight (Pounds): 182 Weight (Calculated Kilograms): 82.639 BMI: 28.5 Cullen Nutrition Score: Probably Inadequate Cullen Nutrition Risk Score: 13 Dietary Referral Nutrition Risk Factors: Mech. Ventilated Nutrition Risk Comment: Nutritional Diagnosis Nutritional Risk Acuity 1: Pulm Fail Vent Nutritional Risk Acuity 3: Alcohol abuse Past Medical History: Depression, smoker, anxiety, asthma, drinks 3-4 pints vodka/day Nutrition Diagnosis: Inadequate Food Intake Nutrition Etiology: Physiological Causes Nutrition Problem/Etiology/Sym: Inadequate food intake r/t physiological causes AEB mech. vent. and ETOH abuse history Energy Requirement: 2290 ([place] state x 1.25 AF) Protein Requirement: 83 (1 g/kg) Fluid Requirement: 2290 (1ml/kcal) Diet Type: Tube Feeding (TF) Nutrition Intervention: Incr diet as tolerated Nutritional Support Current Enteral / Parental: Tube Feeding Tube Feeding Formulas: Jevity 1cal/ml-Standard Current Tube Feeding Formula C: Jevity 1kcal/ml starting at 20cc/hr to final rate of 80cc/hr Tube Feeding Supplement Streng: Full Rate: 80cc/hr Current Duration: 24 Current Calories: 2035 Current Protein: 84 Total Current Calories: 2035 Nutrition Monitoring & Eval RD Patient Assessment Time: [address] Assessment Type: RD Screen Patient Nutrition Acuity: 1-High Follow Up Date: Oct 23, 2017 Nutritional Comment: 10/21 Pt. admitted with alcohol withdrawals and seizure. He has been placed on a mech. vent. and given tube feed Jevity 1kcal/ml at 80cc/hr for total of 2035 kcal/24 hr. Also sedated on Propofol 28.8ml/hr, providing an extra 760 kcal/day. His assessed needs were 2,290 kcal, so he is currently being overfed by 505 kcal/day or 122% of needs. Due to alcoholism, however, he is likely malnourished. Current feeding gives him 84g protein meeting 100% needs. Will discuss with hospitalist. - DANNIELLE CALDERA Oct 21, 2017 16:46
--- NOTE | 2017-10-21 19:06 | RADIOLOGY IMAGING REPORT ---
FACILITY: PATIENT NAME: Richar Bermeo : 1960 MR: [id number] V: [id number] EXAM DATE: ORDERING PHYSICIAN: MICHAEL MILES TECHNOLOGIST: Location: [facility] - [place] Patient: Richar Bermeo : 1960 Visit/Account:[id number] Date of Sevice: 10/21/2017 CHEST SINGLE AP INDICATION: Line placement COMPARISON: 10/21/2017 FINDINGS: Lines and catheters are unchanged in position. Cardiac silhouette is within normal limits. There is worsening bibasilar atelectasis versus infiltrate with probable small pleural effusions. Sta ble infiltrate is seen within the left midlung IMPRESSION: 1. Worsening bibasilar atelectasis versus infiltrate with probable small pleural effusions and stabl e left midlung infiltrate Report Dictated By: Jay Kowalski at 10/21/2017 7:01 PM Report E-Signed By: Jay Kowalski at 10/21/2017 7:03 PM WSN:[id number]
[2017-10-22] VITALS (46 sets, daily range): BP systolic 89–118; BP diastolic 65–82
[2017-10-22] MEDS: PROPOFOL(*)1000 MG/100 ML VIAL 100 ML IV PRN ×7 (00:49→21:24)
[2017-10-22] MEDS: AMPICILLIN/SULBACT (*) 3 GM VL 3 GM in NS(*) 0.9% 100 ML BAG 100 ML IVPB SCH ×4 (02:02→20:19)
[2017-10-22 06:04] LABS: PLATELET COUNT, AUTOMATED 90 K/uL (150-450)
--- NOTE | 2017-10-22 07:08 | RADIOLOGY IMAGING REPORT ---
FACILITY: [facility] PATIENT NAME: Richar Bermeo : 1960 MR: [id number] V: [id number] EXAM DATE: ORDERING PHYSICIAN: MICHAEL MILES TECHNOLOGIST: [place] [facility] [place] Richar Bermeo : 1960 Visit/Account:[id number] Date of Sevice: 10/22/2017 CHEST SINGLE AP COMPARISONS: Single view chest dated October 21, 2017 ADDITIONAL PERTINENT HISTORY: Patient intubated. FINDINGS: Life-support: Right internal jugular venous catheter with its tip in the mid SVC. Endotracheal tube a nd NG tube in stable position. Cardiomediastinal silhouette: Negative. Pulmonary vasculature: Mild atherosclerotic disease of the thoracic aortic arch. Lung jenkins: Patchy areas of opacity at both lung bases slightly improved at the right lung base fro m previous exam. Pleural spaces: Small left-sided pleural effusion. Osseous structures: Negative. Surrounding soft tissues: Negative. IMPRESSION: 1. Stable life support. 2. Stable small left-sided pleural effusion with atelectatic change versus infiltrate at the left gladys g base. 3. Mild improvement in strandy opacity at the right lung base from previous exam. Report Dictated By: Hernan Wei MD at 10/22/2017 7:01 AM Report E-Signed By: Hernan Wei MD at 10/22/2017 7:03 AM WSN:[id number]
[2017-10-22] MEDS: THIAMINE HCL 200 MG/2 ML INJ IVP SCH (08:28)
[2017-10-22] MEDS: ENOXAPARIN 40 MG/0.4ML SYR SC SCH (08:28)
[2017-10-22] MEDS: FOLIC ACID 1 MG TAB PO SCH (08:28)
[2017-10-22] MEDS: PANTOPRAZOLE SOD 40 MG IV VIAL IVP SCH (08:28)
[2017-10-22] MEDS ORDERED: NS(*) 0.9% 500 ML BAG 500 ML IV PRN (09:20)
[2017-10-22] MEDS: ORAL SUCTION/CHLORHX/SWAB KIT MT SCH ×2 (09:47→20:20)
[2017-10-22] MEDS: MIDAZOLAM 50 MG/10 ML VIAL 250 MG in NS(*) 0.9% 250 ML BAG 200 ML IV PRN (13:04)
--- NOTE | 2017-10-22 13:37 | Medical Nutrition Therapy ---
Nutrition Anthropometrics Height (Inches): 67.00 Height (Calculated Centimeters: 170.352833 Weight (Pounds): 179 Weight (Calculated Kilograms): 81.278 BMI: 28.5 Cullen Nutrition Score: Probably Inadequate Cullen Nutrition Risk Score: 13 Dietary Referral Nutrition Risk Factors: Mech. Ventilated Nutrition Risk Comment: Nutritional Diagnosis Nutritional Risk Acuity 1: Pulm Fail Vent Nutritional Risk Acuity 3: Alcohol abuse Past Medical History: Depression, smoker, anxiety, asthma, drinks 3-4 pints vodka/day Nutrition Diagnosis: Inadequate Food Intake Nutrition Etiology: Physiological Causes Nutrition Problem/Etiology/Sym: Inadequate food intake r/t physiological causes AEB mech. vent. and ETOH abuse history Energy Requirement: 2290 ([place] state x 1.25 AF) Protein Requirement: 83 (1 g/kg) Fluid Requirement: 2290 (1ml/kcal) Diet Type: Tube Feeding (TF) Nutrition Intervention: Incr diet as tolerated Nutritional Support Current Enteral / Parental: Tube Feeding Tube Feeding Formulas: Specialty Formula (Promote 1kcal/ml) Current Tube Feeding Formula C: Promote 1kcal/mL at 60mL/hr Tube Feeding Supplement Streng: Full Feeding Route: FT Placed Nasogastric Rate: 60cc/hr Current Duration: 24 Current Calories: 1440 Current Protein: 90 Current Lipids Calories: 760 (Propofol) Total Current Calories: 2200 Nutrition Monitoring & Eval RD Patient Assessment Time: [address] Assessment Type: RD Re-Assessment Patient Nutrition Acuity: 1-High Follow Up Date: Oct 25, 2017 Nutritional Comment: 10/21 Pt. admitted with alcohol withdrawals and seizure. He has been placed on a mech. vent. and given tube feed Jevity 1kcal/ml at 80cc/hr for total of 2035 kcal/24 hr. Also sedated on Propofol 28.8ml/hr, providing an extra 760 kcal/day. His assessed needs were 2,290 kcal, so he is currently being overfed by 505 kcal/day or 122% of needs. Due to alcoholism, however, he is likely malnourished. Current feeding gives him 84g protein meeting 100% protein needs. Will discuss with hospitalist. - RB 10/22 - Discussed w/ change from Jevity 1.06kcal/ml at 80ml/hr to Promote 1kcal/ml at 60 ml/hr to avoid overfeeding and provide adequate protein w/ Propofol. Formula has been changed to Promote this AM. Provides 1440 kcal plus 760 kcal from Propofol for a total of 2200kcal and 90g protein. This provides 100%kcal needs and 108% protein needs. Willl continue to monitor. - DANNIELLE CALDERA OSVALDO Oct 22, 2017 10:32
--- NOTE | 2017-10-22 15:47 | Hospitalist Progress Note ---
Subjective Progress Notes Subjective Pt admitted for seizure like activity and EtOH withdrawal. No acute events overnight. Overbreathing vent, placed on CPAP for a while this am. Physical Exam Vital Signs Date Time Temp Pulse Resp B/P (MAP) Pulse Ox O2 Delivery O2 Flow Rate FiO2 10/22/17 15:32 70 10/22/17 15:30 18 99/71 (80) 94 Mechanical Ventilator 40.0 10/22/17 14:30 99.0 10/20/17 10:15 6.0 Intake and Output 10/23/17 07:00 Intake Total 1394 ml Output Total 875 ml Balance 519 ml Intake IV Total 704 ml Tube Feeding 630 ml Tube Irrigant 60 ml Output Urine Total 875 ml # Bowel Movements 1 General Appearance: Other (intubated and sedated.) Neuro: No Gross deficits ENT: Normal, Other (intubated) Neck: No Masses Cardiovascular: Normal Rhythm & Peripheral Pulses Respiratory: No Respiratory Distress, Clear to Auscultation, Other Chest: No Masses GI: Soft and Non-Tender : Normal (other than scrotal lesion) Musculoskeletal: No Weakness/Pain Extremities: Soft and Non Tender, Warm, Pulses Integumentary: Skin Intact without Lesion / Mass (fine rash, scrotal wound), Other Result Diagram: 10/22/1752410/22/17524 Assessment and Plan Problems: (1) Acute respiratory failure Assessment & Plan: Intubated for airway protection, on propofol and versed for sedation. He is still requiring a lot of sedation, so will continue current treatment. He is ventilating well on minimal settings. Plateau pressures are minimal. He is on an FiO2 of 0.40, PEEP increased to 8. See below. (2) Aspiration pneumonia Status: Acute Assessment & Plan: He had a seizure/seizures prior to admission. CXR shows a left basilar infiltrate. She did have secretions from the ET tube that looked bilious, like from his NG. Continue Unasyn. (3) Alcohol withdrawal seizure Assessment & Plan: Reported seizure activity prior to arrival. On CIWA, currently sedated with propofol and Versed, which also treats alcohol withdrawal. Will transition medications after extubation to Valium and Ativan. (4) Hyperglycemia Assessment & Plan: No known Hx of diabetes. Glucose wnl. Hgb A1C 5.5. (5) Hyponatremia Assessment & Plan: Likely 2/2 low solute intake from poor intake in alcoholism. Improved (6) Thrombocytopenia Status: Acute Assessment & Plan: Likely 2/2 alcoholism and some liver disfunction. Coagulation within normal limits and LFT mildly elevated. (7) Alcoholism Status: Acute Assessment & Plan: Tile And Marble Installer cessation, psychologist social consulted. Thiamine and folate ordered. (8) Hypomagnesemia Assessment & Plan: Likely 2/2 alcoholism, replaced IV. Will follow. Exam Sepsis Risk: Severe Sepsis Risk Problem Qualifiers (1) Alcohol withdrawal seizure: Complication of substance-induced condition: with delirium Qualified Codes: F10.231 - Alcohol dependence with withdrawal delirium SONNY FONG DO Oct 22, 2017 15:47
[2017-10-23] VITALS (48 sets, daily range): BP systolic 87–139; BP diastolic 64–95
[2017-10-23] MEDS: AMPICILLIN/SULBACT (*) 3 GM VL 3 GM in NS(*) 0.9% 100 ML BAG 100 ML IVPB SCH ×4 (01:20→20:19)
[2017-10-23] MEDS: PROPOFOL(*)1000 MG/100 ML VIAL 100 ML IV PRN ×6 (01:21→21:37)
[2017-10-23 05:54] LABS: PLATELET COUNT, AUTOMATED 119 K/uL (150-450)
--- NOTE | 2017-10-23 06:34 | RADIOLOGY IMAGING REPORT ---
FACILITY: [facility] PATIENT NAME: Richar Bermeo : 1960 MR: [id number] V: [id number] EXAM DATE: [id number] ORDERING PHYSICIAN: SONNY SYLVESTER TECHNOLOGIST: Location: [facility] [place] Patient: Richar Bermeo : 1960 Visit/Account:[id number] Date of Sevice: 10/23/2017 CHEST SINGLE AP COMPARISONS: Single view chest dated October 22, 2017 ADDITIONAL PERTINENT HISTORY: Patient with pneumonia. Patient on ventilator. FINDINGS: Life-support: Endotracheal tube, NG tube and a right internal jugular venous catheter in stable posit ion. Cardiomediastinal silhouette: Negative. Pulmonary vasculature: Negative. Lung jenkins: Patchy areas of opacity at the left lung base stable from previous exam. Pleural spaces: Small left-sided pleural effusion. Osseous structures: Negative. Surrounding soft tissues: Negative. IMPRESSION: No significant change since previous exam. Report Dictated By: Hernan Wei MD at 10/23/2017 6:30 AM Report E-Signed By: Hernan Wei MD at 10/23/2017 6:31 AM WSN:[id number]
[2017-10-23] MEDS: MIDAZOLAM 50 MG/10 ML VIAL 250 MG in NS(*) 0.9% 250 ML BAG 200 ML IV PRN (07:55)
[2017-10-23] MEDS: PANTOPRAZOLE SOD 40 MG IV VIAL IVP SCH (09:27)
[2017-10-23] MEDS: FOLIC ACID 1 MG TAB PO SCH (09:27)
[2017-10-23] MEDS: THIAMINE HCL 100 MG TAB PO SCH (09:27)
[2017-10-23] MEDS: ORAL SUCTION/CHLORHX/SWAB KIT MT SCH ×2 (09:28→20:31)
[2017-10-23] MEDS: ENOXAPARIN 40 MG/0.4ML SYR SC SCH (09:28)
--- NOTE | 2017-10-23 10:57 | Hospitalist Progress Note ---
Subjective Progress Notes Subjective He didn't tolerate more than an hour or two of PS/PEEP only, yesterday. Still on high dose Versed/Propofol. Physical Exam Vital Signs Date Time Temp Pulse Resp B/P (MAP) Pulse Ox O2 Delivery O2 Flow Rate FiO2 10/23/17 10:30 76 19 118/89 (99) 93 Mechanical Ventilator 40.0 10/23/17 10:00 98.4 10/20/17 10:15 6.0 Intake and Output 10/24/17 07:00 Intake Total 199.3 ml Output Total 100 ml Balance 99.3 ml Intake IV Total 139.3 ml Tube Irrigant 60 ml Output Urine Total 100 ml General Appearance: No Acute Distress, Other (Sedated and intubated) Neuro: Other (Sedated) Eyes: Other (Pupils symmetric. Eye ointment bilaterally) ENT: Moist Mucous Membranes Cardiovascular: Regular Rate and Rhythm Respiratory: Clear to Auscultation (but decreased on the left) Extremities: No Edema Result Diagram: 10/23/1751410/23/17514 Assessment and Plan Problems: (1) Acute respiratory failure Assessment & Plan: Intubated for airway protection, on propofol 55 mcg/kg/min and versed 12 mg/hr for sedation. He is still requiring a lot of sedation, so will continue current treatment. He is ventilating well on minimal settings. Plateau pressures are minimal. He is on an FiO2 of 0.45, PEEP at 5. See below. Will try to wean Versed today and do another PS/PEEP only trial. (2) Aspiration pneumonia Status: Acute Assessment & Plan: He had a seizure/seizures prior to admission. CXR shows a left basilar infiltrate. She did have secretions from the ET tube that looked bilious, like from his NG. Continue Unasyn. (3) Alcohol withdrawal seizure Assessment & Plan: Reported seizure activity prior to arrival. On CIWA, currently sedated with propofol and Versed, which also treats alcohol withdrawal. Will transition medications after extubation to Valium and Ativan. (4) Hyperglycemia Assessment & Plan: No known Hx of diabetes. Glucose wnl. Hgb A1C 5.5. (5) Hyponatremia Assessment & Plan: Likely 2/2 low solute intake from poor intake in alcoholism. Improved (6) Thrombocytopenia Status: Acute Assessment & Plan: Likely 2/2 alcoholism and some liver disfunction. Coagulation within normal limits and LFT mildly elevated. (7) Alcoholism Status: Acute Assessment & Plan: Apple Sorter cessation, social media community manager consulted. Thiamine and folate ordered. (8) Hypomagnesemia Assessment & Plan: Likely 2/2 alcoholism, replaced IV. Will follow. Exam Sepsis Risk: No Definite Risk Problem Qualifiers (1) Alcohol withdrawal seizure: Complication of substance-induced condition: with delirium Qualified Codes: F10.231 - Alcohol dependence with withdrawal delirium MICHAEL MILES MD Oct 23, 2017 10:57
[2017-10-24] VITALS (48 sets, daily range): BP systolic 83–137; BP diastolic 62–92
[2017-10-24] MEDS: PROPOFOL(*)1000 MG/100 ML VIAL 100 ML IV PRN ×7 (01:02→22:22)
[2017-10-24] MEDS: AMPICILLIN/SULBACT (*) 3 GM VL 3 GM in NS(*) 0.9% 100 ML BAG 100 ML IVPB SCH ×4 (02:23→21:09)
[2017-10-24 05:39] LABS: PLATELET COUNT, AUTOMATED 153 K/uL (150-450)
--- NOTE | 2017-10-24 06:29 | RADIOLOGY IMAGING REPORT ---
FACILITY: [facility] - [place] PATIENT NAME: Richar Bermeo : 1960 MR: [id number] V: [id number] EXAM DATE: ORDERING PHYSICIAN: MICHAEL MILES TECHNOLOGIST: Location: [facility] Patient: Richar Bermeo : 1960 Visit/Account:[id number] Date of Sevice: 10/24/2017 CHEST SINGLE AP COMPARISONS: Single view chest dated October 23, 2017 ADDITIONAL PERTINENT HISTORY: Respiratory failure FINDINGS: Life-support: Endotracheal tube, NG tube and a right internal jugular venous catheter with its tip in the mid SVC. These are all stable in position from previous exam. Cardiomediastinal silhouette: Negative. Pulmonary vasculature: Negative. Lung jenkins: Dense opacity at the left lung base raising the concern for areas of infiltrate. Pleural spaces: Small left-sided pleural effusion, stable from previous exam Osseous structures: Negative. Surrounding soft tissues: Negative. IMPRESSION: No significant change since previous exam. Report Dictated By: Hernan Wei MD at 10/24/2017 6:25 AM Report E-Signed By: Hernan Wei MD at 10/24/2017 6:26 AM WSN:[id number]
[2017-10-24] MEDS: PANTOPRAZOLE SOD 40 MG IV VIAL IVP SCH (09:28)
[2017-10-24] MEDS: FOLIC ACID 1 MG TAB PO SCH (09:31)
[2017-10-24] MEDS: ORAL SUCTION/CHLORHX/SWAB KIT MT SCH ×2 (09:31→21:00)
[2017-10-24] MEDS: THIAMINE HCL 100 MG TAB PO SCH (09:31)
[2017-10-24] MEDS: ENOXAPARIN 40 MG/0.4ML SYR SC SCH (09:31)
--- NOTE | 2017-10-24 10:56 | RADIOLOGY IMAGING REPORT ---
FACILITY: [facility] - [place] PATIENT NAME: Richar Bermeo : 1960 MR: [id number] V: [id number] EXAM DATE: ORDERING PHYSICIAN: AYDEE OKEEFE TECHNOLOGIST: Location: [facility] [place] Patient: Richar Bermeo : 1960 Visit/Account:[id number] Date of Sevice: 10/24/2017 CHEST SINGLE AP 10/24/2017 10:24 hours. HISTORY: Aspiration. COMPARISON: 10/24/2017 and studies dating to 11/20/2016 TECHNIQUE: Portable AP view of the chest. FINDINGS: Tubes/lines/hardware: ET tube terminates 4 cm above the sweetie. NG or OG tube terminates off the infe rior x-ray, at least as far as the body of the stomach. Right IJ catheter terminates in the upper sup erior vena cava. There are external chest leads. Pulmonary: The right lung is clear. There has been improvement in aeration of the left lung with mild residual subsegmental opacities. No pneumothorax. The left pleural effusion has resolved. Cardiomediastinal: The cardiac silhouette is at the upper limits of normal. The mediastinal silhouett e is within normal limits. Bones/soft tissues: No acute osseous abnormality. There unchanged right lateral lower rib fractures. The visible abdomen is normal. IMPRESSION: 1. Improvement in aeration of the left lung and resolution of the small left pleural effusion. 2. Right lung remains clear. 3. Tubes and lines as above. Report Dictated By: Dorothy Doherty at 10/24/2017 10:49 AM Report E-Signed By: Dorothy Doherty at 10/24/2017 10:52 AM WSN:[id number]
--- NOTE | 2017-10-24 12:06 | Hospitalist Progress Note ---
Subjective Progress Notes Subjective Pt admitted for EtOH withdrawal. Remains intubated and sedated. Had episode of vomiting tube feed while being turned for cleaning after BM. Physical Exam Vital Signs Date Time Temp Pulse Resp B/P (MAP) Pulse Ox O2 Delivery O2 Flow Rate FiO2 10/24/17 10:24 45.0 10/24/17 10:23 70 27 10/24/17 06:00 99.5 125/83 (97) 94 Mechanical Ventilator 10/20/17 10:15 6.0 Intake and Output 10/25/17 06:59 Intake Total 109 ml Balance 109 ml Intake IV Total 109 ml ENT: Normal (intubated) Neck: No Masses Cardiovascular: Normal Rhythm & Peripheral Pulses Respiratory: Other (ventilated, coarse breath sounds RUL) Chest: No Masses GI: Soft and Non-Tender : Normal Lymph: No Adenopathy Musculoskeletal: No Weakness/Pain Extremities: Soft and Non Tender, Warm, Pulses Integumentary: Skin Intact without Lesion / Mass (fine papular rash) Result Diagram: 10/24/1751110/24/17511 Assessment and Plan Problems: (1) Acute respiratory failure Assessment & Plan: Intubated for airway protection, on propofol and versed for sedation. He is still requiring a lot of sedation, so will continue current treatment. He is ventilating well on minimal settings. Plateau pressures are minimal. See below. Sedation vacation and SBT daily. Episode aspiration possibly tube feed got by cuff? Suctioned what appeared to be tube feed from ET tube after vomiting episode. (2) Aspiration pneumonia Status: Acute Assessment & Plan: He had a seizure/seizures prior to admission. CXR shows a left basilar infiltrate. He did have secretions from the ET tube that looked bilious, like from his NG. Continue Unasyn. (3) Alcohol withdrawal seizure Assessment & Plan: Reported seizure activity prior to arrival. On CIWA, currently sedated with propofol and Versed, which also treats alcohol withdrawal. Will transition medications after extubation to Valium and Ativan. (4) Hyperglycemia Assessment & Plan: No known Hx of diabetes. Glucose wnl. Hgb A1C 5.5. (5) Hyponatremia Assessment & Plan: Likely 2/2 low solute intake from poor intake in alcoholism. Improved (6) Thrombocytopenia Status: Acute Assessment & Plan: Likely 2/2 alcoholism and some liver disfunction. Coagulation within normal limits and LFT mildly elevated. (7) Alcoholism Status: Acute Assessment & Plan: Outbound Telemarketer cessation, social services analyst consulted. Thiamine and folate ordered. (8) Hypomagnesemia Assessment & Plan: Likely 2/2 alcoholism, replaced IV. Will follow. Exam Sepsis Risk: No Definite Risk Problem Qualifiers (1) Alcohol withdrawal seizure: Complication of substance-induced condition: with delirium Qualified Codes: F10.231 - Alcohol dependence with withdrawal delirium SONNY FONG DO Oct 24, 2017 12:06
[2017-10-24] MEDS: MIDAZOLAM 50 MG/10 ML VIAL 250 MG in NS(*) 0.9% 250 ML BAG 200 ML IV PRN (18:28)
[2017-10-25] VITALS (48 sets, daily range): BP systolic 94–130; BP diastolic 65–91
[2017-10-25] MEDS: PROPOFOL(*)1000 MG/100 ML VIAL 100 ML IV PRN ×6 (01:57→22:29)
[2017-10-25] MEDS: AMPICILLIN/SULBACT (*) 3 GM VL 3 GM in NS(*) 0.9% 100 ML BAG 100 ML IVPB SCH (02:48)
[2017-10-25 05:40] LABS: PLATELET COUNT, AUTOMATED 207 K/uL (150-450)
--- NOTE | 2017-10-25 06:47 | RADIOLOGY IMAGING REPORT ---
FACILITY: [facility] PATIENT NAME: Richar Bermeo : 1960 MR: [id number] V: [id number] EXAM DATE: ORDERING PHYSICIAN: SONNY SYLVESTER TECHNOLOGIST: Location: [facility] - [place] Patient: Richar Bermeo : 1960 Visit/Account:[id number] Date of Sevice: 10/25/2017 CHEST SINGLE AP Additional pertinent History: Intubated COMPARISON STUDIES: 10/24/2017 FINDINGS: Support lines and catheters: ET tube 7 cm from the sweetie. NG tube well within the stomach. Right IJ in the distal third SVC. EKG wire leads. Lungs and Pleura: Increasing parenchymal opacity in the right lower lung. Improved aeration left low er lung with less atelectasis. Heart and vasculature: Central vasculature is slightly less prominent on this examination. Jyoti and Mediastinum: Negative. Bones and Chest wall: Negative. Upper Abdomen: Negative. IMPRESSION: 1. Improvement in what had been a mild central vascular engorgement when compared to the previous christopher dy. 2. Improvement with respect to the atelectasis and aeration left lower lung. 3. Increasing parenchymal opacity/atelectatic lung changes noted in the right lower lung. An aspirati on pneumonitis versus developing pneumonic infiltrate of both the differential Report Dictated By: Gordo Landry MD at 10/25/2017 6:39 AM Report E-Signed By: Gordo Landry MD at 10/25/2017 6:44 AM WSN:[id number]
[2017-10-25] MEDS: PANTOPRAZOLE SOD 40 MG IV VIAL IVP SCH (09:00)
[2017-10-25] MEDS: ORAL SUCTION/CHLORHX/SWAB KIT MT SCH ×2 (09:04→21:11)
[2017-10-25] MEDS: ENOXAPARIN 40 MG/0.4ML SYR SC SCH (09:06)
[2017-10-25] MEDS: FOLIC ACID 1 MG TAB PO SCH (09:07)
[2017-10-25] MEDS: IMIPENEM/CILASTA(*) 500MG VIAL 500 MG in NS(*) 0.9% 100 ML BAG 100 ML IVPB SCH ×3 (09:07→21:11)
[2017-10-25] MEDS: THIAMINE HCL 100 MG TAB PO SCH (09:07)
--- NOTE | 2017-10-25 09:10 | Hospitalist Progress Note ---
Subjective Progress Notes Subjective He has had temperature this AM. CXR shows right-sided infiltrate. Physical Exam Vital Signs Date Time Temp Pulse Resp B/P (MAP) Pulse Ox O2 Delivery O2 Flow Rate FiO2 10/25/17 08:06 45.0 10/25/17 08:06 74 26 10/25/17 06:06 90 Mechanical Ventilator 10/25/17 06:00 107/73 (84) 10/25/17 04:00 100.2 General Appearance: Other (sedated on ventilator) ENT: Other (ET/OG tubes in place/some eczematous changes on face) Neck: Other (IJ site looks good) Cardiovascular: Regular Rate and Rhythm Respiratory: Other (scattered rhonchi/coarse breath sounds) GI: Other (soft/BS present) Extremities: Warm, Perfused Integumentary: Generalized Fragile Skin Result Diagram: 10/25/1745710/25/17457 Assessment and Plan Problems: (1) Acute respiratory failure Assessment & Plan: Intubated for airway protection. He is currently on propofol and versed for sedation. He is still requiring a fair amount of sedation. Episode of aspiration prior to intubation and post-intubation ( possibly tube feed got by cuff) - suctioned what appeared to be tube feed from ET tube after vomiting episode. Will broaden coverage as he may have a ventilator associated pneumonia - Primaxin and vancomycin. (2) Aspiration pneumonia Status: Acute Assessment & Plan: He had a seizure/seizures prior to admission. CXR showed a left basilar infiltrate. He did have secretions from the ET tube that looked bilious. He may have had an episode after ET tube placed as well. Currently his cuff is intact and does not appear to have a leak. We will modify his antibiotics to broaden coverage - Primaxin and vancomycin. (3) Alcohol withdrawal seizure Assessment & Plan: Reported seizure activity prior to arrival. On CIWA, currently sedated with propofol and Versed. Will consider transition to medications after extubation, but by that time he may be nearly clear of his withdrawal. (4) Hyperglycemia Assessment & Plan: No known Hx of diabetes. Glucose wnl. Hgb A1C 5.5. (5) Hyponatremia Assessment & Plan: Likely due to low solute intake from poor intake in alcoholism. Improved. (6) Thrombocytopenia Status: Acute Assessment & Plan: Likely due to alcoholism and some liver disfunction. Coagulation within normal limits. LFT mildly elevated initially, but have normalized. (7) Alcoholism Status: Acute Assessment & Plan: Wash Crew Person cessation, social work administrator consult once he is extubated. he is on thiamine and folate. (8) Hypomagnesemia Assessment & Plan: Likely due to alcoholism, replaced IV. Will follow. Exam Sepsis Risk: No Definite Risk Problem Qualifiers (1) Alcohol withdrawal seizure: Complication of substance-induced condition: with delirium Qualified Codes: F10.231 - Alcohol dependence with withdrawal delirium REEMA JACKSON MD Oct 25, 2017 09:10
[2017-10-25] MEDS ORDERED: VANCOMYCIN(*) 1 GM VIAL 2 GM in NS(*) 0.9% 250 ML BAG 250 ML IVPB ONE (10:00)
[2017-10-25] MEDS ORDERED: ACETAMINOPHEN ADULT 160 MG/5ML 160 MG/5 ML UDBTL PO PRN (11:20)
[2017-10-25] MEDS: VANCOMYCIN(*) 1 GM VIAL 1 GM, VANCOMYCIN (*) 0.5 GM VIAL 0.25 GM in NS(*) 0.9% 250 ML B... IVPB SCH (17:46)
[2017-10-25] MEDS: MIDAZOLAM 50 MG/10 ML VIAL 250 MG in NS(*) 0.9% 250 ML BAG 200 ML IV PRN (20:13)
--- NOTE | 2017-10-25 21:53 | Medical Nutrition Therapy ---
Nutrition Anthropometrics Height (Inches): 67.00 Height (Calculated Centimeters: 170.221949 Weight (Pounds): 178 Weight (Calculated Kilograms): 80.739 BMI: 28.5 Cullen Nutrition Score: Adequate Cullen Nutrition Risk Score: 12 Dietary Referral Nutrition Risk Factors: Mech. Ventilated Nutrition Risk Comment: Physical Findings Physical Appearance: Overweight BMI 25-29 Skin Appearance Skin Appearance: Edema Edema Location Modifier: Edema Location: Type of Edema: Degree of Edema: Gastrointestinal Symptoms GI Symtoms: Tube Present: NG Bowel Sounds: Recent Bowel Pattern: Diarrhea Stool Characteristics: Nutrition/Food History No Significant Nutr. HX Nutritional Diagnosis Nutritional Risk Acuity 1: Pulm Fail Vent Nutritional Risk Acuity 2: Tube Feed Stable Nutritional Risk Acuity 3: Alcohol abuse Past Medical History: Depression, smoker, anxiety, asthma, drinks 3-4 pints vodka/day Nutrition Diagnosis: Inadequate Food Intake Nutrition Etiology: Physiological Causes Nutrition Problem/Etiology/Sym: Inadequate food intake r/t physiological causes AEB mech. vent. and ETOH abuse history Energy Requirement: 2290 (Sarbjit state x 1.25 AF) Protein Requirement: 83 (1 g/kg) Fluid Requirement: 2290 (1ml/kcal) Diet Type: Tube Feeding (TF) Nutrition Intervention: Incr diet as tolerated Nutritional Support Current Enteral / Parental: Tube Feeding Tube Feeding Formulas: Specialty Formula (Promote 1kcal/ml) Current Tube Feeding Formula C: Promote 1kcal/mL at 60mL/hr Tube Feeding Supplement Streng: Full Feeding Route: FT Placed Nasogastric Rate: 60cc/hr Current Duration: 24 Current Calories: 1440 Current Protein: 90 Current Lipids Calories: 760 (Propofol) Total Current Calories: 2200 Nutrition Monitoring & Eval RD Patient Assessment Time: [address] Assessment Type: RD Re-Assessment Patient Nutrition Acuity: 1-High Follow Up Date: Oct 27, 2017 Nutritional Comment: 10/21 Pt. admitted with alcohol withdrawals and seizure. He has been placed on a mech. vent. and given tube feed Jevity 1kcal/ml at 80cc/hr for total of 2035 kcal/24 hr. Also sedated on Propofol 28.8ml/hr, providing an extra 760 kcal/day. His assessed needs were 2,290 kcal, so he is currently being overfed by 505 kcal/day or 122% of needs. Due to alcoholism, however, he is likely malnourished. Current feeding gives him 84g protein meeting 100% protein needs. Will discuss with hospitalist. - RB 10/22 - Discussed w/ Dr. change from Jevity 1.06kcal/ml at 80ml/hr to Promote 1kcal/ml at 60 ml/hr to avoid overfeeding and provide adequate protein w/ Propofol. Formula has been changed to Promote this AM. Provides 1440 kcal plus 760 kcal from Propofol for a total of 2200kcal and 90g protein. This provides 100%kcal needs and 108% protein needs. Willl continue to monitor. - RB 10/25 TF stopped d/t suctioning what appeared to be tube feed from ET tube after vomiting episode. TF restarted with previous feeding of Promote at 20mL/hr increasing to final rate of 60mL/hr. Pt also receiving propofol for sedation which contributes 1.1 kcals/mL as fat. Monitor TF tolerance, labs, etc. -KATEY SOTO Oct 25, 2017 21:53
[2017-10-26] VITALS (35 sets, daily range): BP systolic 87–161; BP diastolic 57–124
[2017-10-26] MEDS: VANCOMYCIN(*) 1 GM VIAL 1 GM, VANCOMYCIN (*) 0.5 GM VIAL 0.25 GM in NS(*) 0.9% 250 ML B... IVPB SCH ×3 (01:46→17:58)
[2017-10-26] MEDS: PROPOFOL(*)1000 MG/100 ML VIAL 100 ML IV PRN ×3 (03:10→21:58)
[2017-10-26] MEDS: IMIPENEM/CILASTA(*) 500MG VIAL 500 MG in NS(*) 0.9% 100 ML BAG 100 ML IVPB SCH ×4 (03:13→20:56)
[2017-10-26 06:49] LABS: PLATELET COUNT, AUTOMATED 236 K/uL (150-450)
[2017-10-26] MEDS: THIAMINE HCL 100 MG TAB PO SCH (08:41)
[2017-10-26] MEDS: ENOXAPARIN 40 MG/0.4ML SYR SC SCH (08:41)
[2017-10-26] MEDS: FOLIC ACID 1 MG TAB PO SCH (08:41)
[2017-10-26] MEDS: PANTOPRAZOLE SOD 40 MG IV VIAL IVP SCH (08:41)
--- NOTE | 2017-10-26 10:11 | Hospitalist Progress Note ---
Subjective Progress Notes Subjective This patient was admitted for alcohol withdrawal and was intubated for airway protection. He suffered an aspiration event earlier in this admission. Patient Complains of: Cardiovascular: No: Chest Pain Respiratory: Congestion Physical Exam Vital Signs Date Time Temp Pulse Resp B/P (MAP) Pulse Ox O2 Delivery O2 Flow Rate FiO2 10/26/17 09:23 45.0 10/26/17 08:42 62 13 10/26/17 07:44 96 Mechanical Ventilator 10/26/17 07:30 103/66 (78) 10/25/17 18:00 100.0 Intake and Output 10/27/17 07:00 Output Total 145 ml Balance -145 ml Output Urine Total 145 ml Neuro: Other (Sedated to RASS -4.) Eyes: PERRLA Cardiovascular: Regular Rate and Rhythm Respiratory: Other (Bilateral breath sounds present.) GI: Soft and Non-Tender Extremities: No Edema Integumentary: No Cyanosis Result Diagram: 10/26/17 0558 10/26/17 0558 Item Value Date Time Gram Stain - Final Complete 10/21/17 0851 Sputum Endotrach Aspirate Blood Culture - Final Complete 10/20/17 1402 Blood NO GROWTH AFTER 5 DAYS IN BOTH THE AE... Blood Culture - Final Complete 10/20/17 1356 Blood NO GROWTH AFTER 5 DAYS IN BOTH THE AE... Imaging Chest x-ray reviewed. Assessment and Plan Problems: (1) Acute respiratory failure Assessment & Plan: He was intubated on 10/20 for airway protection. He is currently on propofol and versed for sedation. We will try to wean him to CPAP today. (2) Aspiration pneumonia Status: Acute Assessment & Plan: He did suffer an aspiration event while on the ventilator. His chest x-ray has show a right lower lobe infiltrate. He is on empiric treatment with Unasyn and vancomycin was started yesterday secondary to fever. Cultures have been negative. (3) Alcohol withdrawal seizure Assessment & Plan: It is reported that he had a seizure prior to admission. He has been stable on the propofol and midazolam. (4) Hyperglycemia Assessment & Plan: He did have an elevated glucose at admission, but has not required coverage since then. His sliding scale has been discontinued. (5) Hyponatremia Assessment & Plan: Resolved with IV fluids. (6) Thrombocytopenia Status: Acute Assessment & Plan: Resolved. (7) Alcoholism Status: Acute Assessment & Plan: He will require counselling once extubated. We do have him on supplemental thiamine. (8) Hypomagnesemia Assessment & Plan: Resolved with supplementation. Exam Sepsis Risk: No Definite Risk Problem Qualifiers (1) Alcohol withdrawal seizure: Complication of substance-induced condition: with delirium Qualified Codes: F10.231 - Alcohol dependence with withdrawal delirium AYDEE OKEEFE DO Oct 26, 2017 10:11
[2017-10-26] MEDS: ORAL SUCTION/CHLORHX/SWAB KIT MT SCH ×2 (15:13→20:56)
[2017-10-26] MEDS: MIDAZOLAM 50 MG/10 ML VIAL 250 MG in NS(*) 0.9% 250 ML BAG 200 ML IV PRN (18:06)
[2017-10-27] VITALS (29 sets, daily range): BP systolic 85–144; BP diastolic 48–99
[2017-10-27] MEDS: VANCOMYCIN(*) 1 GM VIAL 1 GM, VANCOMYCIN (*) 0.5 GM VIAL 0.25 GM in NS(*) 0.9% 250 ML B... IVPB SCH ×3 (01:42→18:00)
[2017-10-27] MEDS: PROPOFOL(*)1000 MG/100 ML VIAL 100 ML IV PRN ×2 (02:05→05:44)
[2017-10-27] MEDS: IMIPENEM/CILASTA(*) 500MG VIAL 500 MG in NS(*) 0.9% 100 ML BAG 100 ML IVPB SCH ×4 (02:45→21:07)
[2017-10-27 06:38] LABS: PLATELET COUNT, AUTOMATED 266 K/uL (150-450)
--- NOTE | 2017-10-27 06:55 | RADIOLOGY IMAGING REPORT ---
FACILITY: [facility] PATIENT NAME: Richar Bermeo : 1960 MR: [id number] V: [id number] EXAM DATE: ORDERING PHYSICIAN: AYDEE OKEEFE TECHNOLOGIST: [place] [facility] [place] Richar Bermeo : 1960 Visit/Account:[id number] Date of Sevice: 10/27/2017 CHEST SINGLE AP Additional pertinent History: Pneumonia COMPARISON STUDIES: 10/25/2017 FINDINGS: Support lines and catheters: ET tube remains well-positioned 6 cm from the sweetie. NG tube coursing w ithin the stomach. Right IJ catheter remains well-positioned in the mid SVC. Lungs and Pleura: Distinct improvement in the appearance parenchymal opacity seen in the right lower lung when compared to previous study. Persistent mild increased bronchovascular interstitial lung ma rkings at both lung bases symmetrically seen Heart and vasculature: Hearts mildly large. No vascular congestion Jyoti and Mediastinum: Negative. Bones and Chest wall: Negative. Upper Abdomen: Negative. IMPRESSION: 1. Improved aeration in the right lower lung when compared to the previous study. Report Dictated By: Gordo Landry MD at 10/27/2017 6:48 AM Report E-Signed By: Gordo Landry MD at 10/27/2017 6:52 AM WSN:[id number]
[2017-10-27] MEDS: PANTOPRAZOLE SOD 40 MG IV VIAL IVP SCH (08:38)
[2017-10-27] MEDS: THIAMINE HCL 100 MG TAB PO SCH (08:38)
[2017-10-27] MEDS: ENOXAPARIN 40 MG/0.4ML SYR SC SCH (08:38)
[2017-10-27] MEDS: FOLIC ACID 1 MG TAB PO SCH (08:38)
[2017-10-27] MEDS: ORAL SUCTION/CHLORHX/SWAB KIT MT SCH (08:38)
--- NOTE | 2017-10-27 09:01 | Hospitalist Progress Note ---
Subjective Progress Notes Subjective He remains intubated/sedated. He is ventilating easily/FiO2 reasonable/CXR improved. He does not tolerate having sedation lowered very well. Physical Exam Vital Signs Date Time Temp Pulse Resp B/P (MAP) Pulse Ox O2 Delivery O2 Flow Rate FiO2 10/27/17 06:00 45.0 10/27/17 06:00 70 16 10/27/17 05:50 93 Mechanical Ventilator 10/26/17 22:00 88/64 (72) 10/26/17 19:30 100.4 General Appearance: Other (sedated on ventilator) Cardiovascular: Regular Rate and Rhythm Respiratory: Other (fairly clear) GI: Other (soft/BS present) Extremities: Warm, Perfused Integumentary: Other (eczematous changes especially on face) Result Diagram: 10/27/17 0513 10/27/17 0500 Item Value Date Time Oxygen Liters/Minute 45 10/27/17 0513 Wes Test Acceptable 10/27/17 0513 Arterial Blood Base Excess 1.0 mmol/L 10/27/17 0513 Arterial Blood Oxygen Saturation 95 % 10/27/17 0513 Arterial Blood HCO3 26 mmol/L 10/27/17 0513 Arterial Blood Partial Pressure O2 80 mmHg 10/27/17 0513 Arterial Blood Partial Pressure CO2 44 mmHg H 10/27/17 0513 Arterial Blood pH 7.38 10/27/17 0513 Blood Gas Patient Temperature 37.4 DEGREES 10/27/17 0513 Blood Gas Puncture Site Right radial 10/27/17 0513 Albumin 3.0 g/dl L 10/27/17 0500 Total Protein 5.8 g/dl L 10/27/17 0500 Alkaline Phosphatase 86 U/L 10/27/17 0500 Alanine Aminotransferase (ALT/SGPT) 29 U/L 10/27/17 0500 Aspartate Amino Transf (AST/SGOT) 20 U/L 10/27/17 0500 Total Bilirubin 0.4 mg/dl 10/27/17 0500 Calcium Level 8.7 mg/dl 10/27/17 0500 Imaging PATIENT NAME: Richar Bermeo : 1960 MR: [id number] V: [id number] EXAM DATE: ORDERING PHYSICIAN: AYDEE OKEEFE TECHNOLOGIST: Location: [facility] - [place] Patient: Richar Bermeo : 1960 Visit/Account:[id number] Date of Sevlynne: 10/27/2017 CHEST SINGLE AP Additional pertinent History: Pneumonia COMPARISON STUDIES: 10/25/2017 FINDINGS: Support lines and catheters: ET tube remains well-positioned 6 cm from the sweetie. NG tube coursing within the stomach. Right IJ catheter remains well- positioned in the mid SVC. Lungs and Pleura: Distinct improvement in the appearance parenchymal opacity seen in the right lower lung when compared to previous study. Persistent mild increased bronchovascular interstitial lung markings at both lung bases symmetrically seen Heart and vasculature: Hearts mildly large. No vascular congestion Jyoti and Mediastinum: Negative. Bones and Chest wall: Negative. Upper Abdomen: Negative. IMPRESSION: 1. Improved aeration in the right lower lung when compared to the previous study. Report Dictated By: Gordo Landry MD at 10/27/2017 6:48 AM Report E-Signed By: Gordo Landry MD at 10/27/2017 6:52 AM WSN:[id number] Assessment and Plan Problems: (1) Acute respiratory failure Assessment & Plan: He was intubated on 10/20 for airway protection. He is currently on propofol and versed for sedation. We will try to wean him off the sedation and extubate today. (2) Aspiration pneumonia Status: Acute Assessment & Plan: He did suffer an aspiration event prior to intubation and possibly while on the ventilator. His chest x-ray did show a right lower lobe infiltrate, which has improved/resolved. He is on empiric treatment with Primaxin and vancomycin. Cultures have been negative. It appears he has improved most likely secondary to good suctioning/secretion clearance. He should be bale to be extubated today. (3) Alcohol withdrawal seizure Assessment & Plan: It is reported that he had a seizure prior to admission. He has been stable while on the propofol and midazolam. Will consider possible anticonvulsant after extubation, but the seizure is most likely alcohol withdrawal related. (4) Hyperglycemia Assessment & Plan: He did have an elevated glucose at admission, but has not required coverage since then. His sliding scale has been discontinued. (5) Hyponatremia Assessment & Plan: Resolved with IV fluids. (6) Thrombocytopenia Status: Acute Assessment & Plan: Resolved. (7) Alcoholism Status: Acute Assessment & Plan: He will require counselling once extubated. We do have him on supplemental thiamine. (8) Hypomagnesemia Assessment & Plan: Resolved with supplementation. Exam Sepsis Risk: No Definite Risk Problem Qualifiers (1) Alcohol withdrawal seizure: Complication of substance-induced condition: with delirium Qualified Codes: F10.231 - Alcohol dependence with withdrawal delirium REEMA JACKSON MD Oct 27, 2017 09:01
--- NOTE | 2017-10-27 10:33 | Antimicrobial Stewardship ---
Antimicrobial Time Out Antimicrobial Stewardship MD Service: Hospitalist Indications: Other (Aspiration Pneumonia) Antimicrobial Used 10/21-10/25 Unasyn 10/25 - present: Primaxin 500mg IV Q6h Vancomycin Start Date: Oct 21, 2017 Eligible for PO Conversion Eligable for PO Conversion: Yes (10/20 Blood Cx (-), Sputum - normal lyn) Reviewed with Provider Reviewed w/ Provider on Rounds: Yes Date Reviewed w/ Provider: Oct 27, 2017 Comments Comments 57 you M who presented with seizures at home due to alcohol withdrawal, drinking 3-4 pints of vodka per day. Chest xray in the ED showed LLL and LML infiltrate, likely an aspiration episode at home. Also, a second aspiration event while intubated, developed a new RLL infiltrate. Temp - still with fever 100F HR 70s BP 100s/70s RR 16 WBC wnl Chest xray shows improvement in infiltrates 1. Aspiration pneumonia secondary to seizures and alcohol withdrawal: improving and will be extubated today. Currently on Primaxin and Vancomycin. 10/21-10/24 Unasyn 3g IV Q6H 10/24-current Primaxin 500mg IV Q6H, Vancomycin 2g IV x 1, then 1.25g IV Q8H 10/26/17- Vancomycin Trough = 15.14, recheck 10/27/17 at 1700, goal trough 15-20 Will continue to monitor. Complete 5-7 days of IV antibiotics, may consider switching to oral antibiotics at that time to complete 10 day course pending progress. Clary Candelario, PharmD, BCOP CLARY CANDELARIO Oct 27, 2017 10:14
[2017-10-27] MEDS ORDERED: NS(*) 0.9% 1000 ML BAG 1,000 ML IV PRN (12:10)
--- NOTE | 2017-10-27 16:36 | Medical Nutrition Therapy ---
Nutrition Anthropometrics Height (Inches): 67.00 Height (Calculated Centimeters: 170.034015 Weight (Pounds): 173 Weight (Calculated Kilograms): 78.471 BMI: 27.1 Cullen Nutrition Score: Adequate Cullen Nutrition Risk Score: 12 Dietary Referral Nutrition Risk Factors: Mech. Ventilated Nutrition Risk Comment: Physical Findings Physical Appearance: Overweight BMI 25-29 Skin Appearance Skin Appearance: Edema Edema Location Modifier: Both Edema Location: Foot Type of Edema: Degree of Edema: Gastrointestinal Symptoms GI Symtoms: Tube Present: NG Bowel Sounds: Recent Bowel Pattern: Diarrhea Stool Characteristics: Nutritional Diagnosis Nutritional Risk Acuity 1: Pulm Fail Vent Nutritional Risk Acuity 2: Tube Feed Stable Nutritional Risk Acuity 3: Alcohol abuse Past Medical History: Depression, smoker, anxiety, asthma, drinks 3-4 pints vodka/day Nutrition Diagnosis: Inadequate Food Intake Nutrition Etiology: Physiological Causes Nutrition Problem/Etiology/Sym: Inadequate food intake r/t physiological causes AEB mech. vent. and ETOH abuse history Energy Requirement: 2290 (Sarbjit state x 1.25 AF) Protein Requirement: 83 (1 g/kg) Fluid Requirement: 2290 (1ml/kcal) Diet Type: Tube Feeding (TF) Nutrition Intervention: Incr diet as tolerated Nutritional Support Current Enteral / Parental: Tube Feeding Tube Feeding Formulas: Specialty Formula (Promote 1kcal/ml) Current Tube Feeding Formula C: Promote 1kcal/mL at 60mL/hr Tube Feeding Supplement Streng: Full Feeding Route: FT Placed Nasogastric Rate: 60cc/hr Current Duration: 24 Current Calories: 1440 Current Protein: 90 Current Lipids Calories: 634 (Propofol) Total Current Calories: 2074 Nutrition Monitoring & Eval RD Patient Assessment Time: [address] Assessment Type: RD Re-Assessment Patient Nutrition Acuity: 1-High Follow Up Date: Oct 29, 2017 Nutritional Comment: 10/21 Pt. admitted with alcohol withdrawals and seizure. He has been placed on a mech. vent. and given tube feed Jevity 1kcal/ml at 80cc/hr for total of 2035 kcal/24 hr. Also sedated on Propofol 28.8ml/hr, providing an extra 760 kcal/day. His assessed needs were 2,290 kcal, so he is currently being overfed by 505 kcal/day or 122% of needs. Due to alcoholism, however, he is likely malnourished. Current feeding gives him 84g protein meeting 100% protein needs. Will discuss with hospitalist. - RB 10/22 - Discussed w/ Dr. change from Jevity 1.06kcal/ml at 80ml/hr to Promote 1kcal/ml at 60 ml/hr to avoid overfeeding and provide adequate protein w/ Propofol. Formula has been changed to Promote this AM. Provides 1440 kcal plus 760 kcal from Propofol for a total of 2200kcal and 90g protein. This provides 100%kcal needs and 108% protein needs. Willl continue to monitor. - RB 10/25 TF stopped d/t suctioning what appeared to be tube feed from ET tube after vomiting episode. TF restarted with previous feeding of Promote at 20mL/hr increasing to final rate of 60mL/hr. Pt also receiving propofol for sedation which contributes 1.1 kcals/mL as fat. Monitor TF tolerance, labs, etc. -DRAbdon 10/27 Pt cont tube feed Promote 60mL/hr with Propofol 24 ml/hr for a total of 2074kcal and 90g protein. Dr note said they will attempt extubation today, so waiting on details. Pt has aspiration pneumonia treated w/ vancomycin. No changes to diet as of yet. Will cont to monitor for changes. Creat still running low 0.6 and alb. 3.0 but trending slowly upward. -DANNIELLE CALDERA Oct 27, 2017 12:40
[2017-10-28] VITALS (14 sets, daily range): BP systolic 113–144; BP diastolic 52–97
[2017-10-28] MEDS: VANCOMYCIN(*) 1 GM VIAL 1 GM, VANCOMYCIN (*) 0.5 GM VIAL 0.25 GM in NS(*) 0.9% 250 ML B... IVPB SCH (01:19)
[2017-10-28] MEDS: IMIPENEM/CILASTA(*) 500MG VIAL 500 MG in NS(*) 0.9% 100 ML BAG 100 ML IVPB SCH ×4 (02:57→21:23)
[2017-10-28 06:55] LABS: PLATELET COUNT, AUTOMATED 317 K/uL (150-450)
[2017-10-28] MEDS ORDERED: HYDROCORTISONE 1% CR 28.35 GM TP SCH (09:25)
[2017-10-28] MEDS: FOLIC ACID 1 MG TAB PO SCH (09:28)
[2017-10-28] MEDS: PANTOPRAZOLE SOD 40 MG TABEC PO SCH (09:28)
[2017-10-28] MEDS: ENOXAPARIN 40 MG/0.4ML SYR SC SCH (09:28)
[2017-10-28] MEDS: THIAMINE HCL 100 MG TAB PO SCH (09:28)
[2017-10-28] MEDS: HYDROCORTISONE 1% CR 28.35 GM TP SCH ×2 (10:24→21:23)
--- NOTE | 2017-10-28 10:42 | Hospitalist Progress Note ---
Subjective Progress Notes Subjective He reports he is hungry. He denies SOB. He tolerated liquids yesterday. Physical Exam Vital Signs Date Time Temp Pulse Resp B/P (MAP) Pulse Ox O2 Delivery O2 Flow Rate FiO2 10/28/17 07:51 92 High-Flow Nasal Cannula 5.0 10/28/17 06:06 98.8 78 16 113/76 (88) 10/27/17 13:30 50.0 Intake and Output 10/29/17 07:00 Intake Total 240 ml Output Total 600 ml Balance -360 ml Intake Oral 240 ml Output Urine Total 600 ml General Appearance: Alert, Awake, No Acute Distress Cardiovascular: Regular Rate and Rhythm Respiratory: Clear to Auscultation Extremities: No Edema Integumentary: Other (Face with blotchy erythema and hyperkeratosis) Result Diagram: 10/28/17 0540 10/28/17 0540 Assessment and Plan Problems: (1) Aspiration pneumonia Status: Acute Assessment & Plan: He did suffer an aspiration event prior to intubation and possibly while on the ventilator. His chest x-ray did show a right lower lobe infiltrate, which has improved/resolved. He is on empiric treatment with Primaxin and vancomycin. He is afebrile and breathing comfortably. Cultures have been negative. It appears he has improved most likely secondary to good suctioning/secretion clearance. Vancomycin to be stopped today. (2) Weakness Status: Acute Assessment & Plan: Secondary to prolonged ICU stay. Will ask OT/PT to evaluate. (3) Alcohol withdrawal seizure Assessment & Plan: It is reported that he had a seizure prior to admission. He was been stable while on the propofol and midazolam. Now scoring low on CIWA, so is through the alcohol withdrawal. (4) Hyperglycemia Assessment & Plan: He did have an elevated glucose at admission, but has not required coverage since then. His sliding scale has been discontinued. (5) Hyponatremia Assessment & Plan: Resolved with IV fluids. (6) Thrombocytopenia Status: Acute Assessment & Plan: Resolved. (7) Alcoholism Status: Acute Assessment & Plan: He will require counselling once extubated. We do have him on supplemental thiamine. (8) Hypomagnesemia Assessment & Plan: Resolved with supplementation. (9) Seborrheic dermatitis Status: Chronic Assessment & Plan: Long standing issue involving his face and scalp. Will try hydrocortisone cream bid on the face. (10) Acute respiratory failure Status: Resolved Assessment & Plan: He was intubated on 10/20 for airway protection. He was safely extubated on 10/27. Exam Sepsis Risk: No Definite Risk Problem Qualifiers (1) Alcohol withdrawal seizure: Complication of substance-induced condition: with delirium Qualified Codes: F10.231 - Alcohol dependence with withdrawal delirium MICHAEL MILES MD Oct 28, 2017 10:42
--- NOTE | 2017-10-28 15:58 | RADIOLOGY IMAGING REPORT ---
FACILITY: [facility] PATIENT NAME: Richar Bermeo : 1960 MR: [id number] V: [id number] EXAM DATE: ORDERING PHYSICIAN: REEMA JACKSON TECHNOLOGIST: Location: [facility] - [place], [place] Patient: Richar Bermeo : 1960 Visit/Account:[id number] Date of Sevice: 10/26/2017 Exam type: CHEST SINGLE AP History: intubated/pneumonia Comparison: October 25, 2017. Findings: Images have just now been submitted for formal interpretation. There is slightly better aeration of the right lung base with slightly less airspace consolidation. There appears to be increased linear stranding the left lung base which could represent atelectasis or developing infiltrate. There is no evidence of overt pulmonary edema. The cardiac silhouette appears stable. The right pulmonary apex is not included on study. Right IJ catheter and NG/OG tube appears unchanged. ET tube no longer se en IMPRESSION: 1. There is better aeration of the right lung base with less airspace consolidation Increased linear stranding left lung base which could represent atelectasis or developing infiltrate No evidence of overt pulmonary edema ET tube is no longer seen Report Dictated By: Angelique Dorman MD at 10/28/2017 3:47 PM Report E-Signed By: Angelique Dorman MD at 10/28/2017 3:55 PM WSN:[email or web address]
[2017-10-28] MEDS: NICOTINE 14 MG/24 HR PATCH TD SCH (16:48)
[2017-10-29 03:07] VITALS: BP 109/77
[2017-10-29] MEDS: IMIPENEM/CILASTA(*) 500MG VIAL 500 MG in NS(*) 0.9% 100 ML BAG 100 ML IVPB SCH (03:14)
[2017-10-29 07:52] VITALS: BP 124/93
[2017-10-29] MEDS: ENOXAPARIN 40 MG/0.4ML SYR SC SCH (10:13)
[2017-10-29] MEDS: FOLIC ACID 1 MG TAB PO SCH (10:13)
[2017-10-29] MEDS: PANTOPRAZOLE SOD 40 MG TABEC PO SCH (10:13)
[2017-10-29] MEDS: NICOTINE 14 MG/24 HR PATCH TD SCH (10:14)
[2017-10-29] MEDS: THIAMINE HCL 100 MG TAB PO SCH (10:14)
[2017-10-29] MEDS: HYDROCORTISONE 1% CR 28.35 GM TP SCH ×2 (10:14→20:30)
[2017-10-29 12:34] VITALS: BP 118/84
[2017-10-29] MEDS: AMOX/CLAV 875 MG TAB PO SCH ×2 (12:39→18:13)
--- NOTE | 2017-10-29 13:52 | Hospitalist Progress Note ---
Subjective Progress Notes Subjective He was admitted with alcohol withdraw seizures. He had no acute events overnight. Patient Complains of: Cardiovascular: No: Chest Pain Respiratory: No: Shortness of Breath Physical Exam Vital Signs Date Time Temp Pulse Resp B/P (MAP) Pulse Ox O2 Delivery O2 Flow Rate FiO2 10/29/17 12:34 75 18 118/84 (95) 93 Nasal Cannula 5.0 10/29/17 11:39 98.3 10/27/17 13:30 50.0 Intake and Output 10/30/17 01:00 Intake Total 910 ml Balance 910 ml Intake Oral 800 ml IV Total 110 ml # Voids 1 General Appearance: Alert, Awake, No Acute Distress, Afebrile Neuro: No Gross deficits Cardiovascular: Regular Rate and Rhythm Respiratory: No Respiratory Distress, Clear to Auscultation GI: Soft and Non-Tender Psych: Appropriate Mood & Affect Result Diagram: 10/28/17 0540 10/28/17 0540 Assessment and Plan Problems: (1) Aspiration pneumonia Status: Acute Assessment & Plan: He did suffer an aspiration event prior to intubation and possibly while on the ventilator. His chest x-ray did show a right lower lobe infiltrate, which has improved/resolved. He is on empiric treatment with Primaxin and vancomycin. He is afebrile and breathing comfortably. Cultures have been negative. It appears he has improved most likely secondary to good suctioning/secretion clearance. He was switched to oral Augmentin this morning. (2) Weakness Status: Acute Assessment & Plan: Secondary to prolonged ICU stay. Will ask OT/PT to evaluate. (3) Alcohol withdrawal seizure Assessment & Plan: It is reported that he had a seizure prior to admission. He was stable while on the propofol and midazolam. Now scoring low on CIWA, so is through the alcohol withdrawal. ST to evaluate cognition status today. (4) Hyperglycemia Assessment & Plan: He did have an elevated glucose at admission, but has not required coverage since then. His sliding scale has been discontinued. (5) Hyponatremia Assessment & Plan: Resolved with IV fluids. (6) Thrombocytopenia Status: Acute Assessment & Plan: Resolved. (7) Alcoholism Status: Acute Assessment & Plan: He will require counselling once extubated. We do have him on supplemental thiamine. (8) Hypomagnesemia Assessment & Plan: Resolved with supplementation. (9) Seborrheic dermatitis Status: Chronic Assessment & Plan: Long standing issue involving his face and scalp. Will try hydrocortisone cream bid on the face. (10) Acute respiratory failure Status: Resolved Assessment & Plan: He was intubated on 10/20 for airway protection. He was safely extubated on 10/27. Exam Sepsis Risk: No Definite Risk Problem Qualifiers (1) Alcohol withdrawal seizure: Complication of substance-induced condition: with delirium Qualified Codes: F10.231 - Alcohol dependence with withdrawal delirium JORGE GARAY RUN LEAD Oct 29, 2017 13:52
[2017-10-29] MEDS ORDERED: SALICYLIC ACID TOP SCH (15:00)
--- NOTE | 2017-10-29 15:22 | Medical Nutrition Therapy ---
Nutrition Anthropometrics Height (Inches): 67.00 Height (Calculated Centimeters: 170.265413 Weight (Pounds): 165 Weight (Calculated Kilograms): 74.984 BMI: 27.1 Cullen Nutrition Score: Probably Inadequate Cullen Nutrition Risk Score: 18 Dietary Referral Nutrition Risk Factors: Mech. Ventilated Nutrition Risk Comment: Nutritional Diagnosis Nutritional Risk Acuity 3: Fair Appetite, Eat/Chew Problem, Alcohol abuse Nutritional Risk Acuity 4: Modified Diet Past Medical History: Depression, smoker, anxiety, asthma, drinks 3-4 pints vodka/day Nutrition Diagnosis: Inadequate Food Intake Nutrition Etiology: Physiological Causes Nutrition Problem/Etiology/Sym: Inadequate food intake r/t physiological causes AEB ETOH abuse history Energy Requirement: 2290 ([place] state x 1.25 AF) Protein Requirement: 83 (1 g/kg) Fluid Requirement: 2290 (1ml/kcal) Diet Type: Soft Mechanical Nutrition Intervention: Encourage intake, Incr diet as tolerated Nutrition Monitoring & Eval Nutrition Goals: Eat 50-100% Meal, Drink > 1200 cc/day RD Patient Assessment Time: [address] Assessment Type: RD Re-Assessment Patient Nutrition Acuity: 1-High Follow Up Date: Nov 01, 2017 Nutritional Comment: 10/21 Pt. admitted with alcohol withdrawals and seizure. He has been placed on a mech. vent. and given tube feed Jevity 1kcal/ml at 80cc/hr for total of 2035 kcal/24 hr. Also sedated on Propofol 28.8ml/hr, providing an extra 760 kcal/day. His assessed needs were 2,290 kcal, so he is currently being overfed by 505 kcal/day or 122% of needs. Due to alcoholism, however, he is likely malnourished. Current feeding gives him 84g protein meeting 100% protein needs. Will discuss with hospitalist. - RB 10/22 - Discussed w/ DrBecky change from Jevity 1.06kcal/ml at 80ml/hr to Promote 1kcal/ml at 60 ml/hr to avoid overfeeding and provide adequate protein w/ Propofol. Formula has been changed to Promote this AM. Provides 1440 kcal plus 760 kcal from Propofol for a total of 2200kcal and 90g protein. This provides 100%kcal needs and 108% protein needs. Willl continue to monitor. - RB 10/25 TF stopped d/t suctioning what appeared to be tube feed from ET tube after vomiting episode. TF restarted with previous feeding of Promote at 20mL/hr increasing to final rate of 60mL/hr. Pt also receiving propofol for sedation which contributes 1.1 kcals/mL as fat. Monitor TF tolerance, labs, etc. -PEGGY 10/27 Pt cont tube feed Promote 60mL/hr with Propofol 24 ml/hr for a total of 2074kcal and 90g protein. Dr note said they will attempt extubation today, so waiting on details. Pt has aspiration pneumonia treated w/ vancomycin. No changes to diet as of yet. Will cont to monitor for changes. Creat still running low 0.6 and alb. 3.0 but trending slowly upward. -RB 10/29 Pt has been extubated and diet advanced to mech soft. Pt has eaten 100%, Dr notes state pt is "hungry." Pt tolerating liquids well and no SOB. Aspiration pneumonia resolved.Labs indicate improving alb. 3.1. Creat still low 0.6, H/H low also. Wt also down 9.3# since yesterday probably due to fluids loss. Will monitor diet advancement and any changes. -DANNIELLE CALDERA Oct 29, 2017 14:39
--- NOTE | 2017-10-29 15:50 | SPEECH INITIAL EVALUATION ---
SPEECH THERAPY auxiliary engineer: Rachel Lyles MS, CCC-PENCILLER Type of Assessment: Cognitive Linguistic Assessment Patient: Richar Bermeo : 1960, 57yrs Evaluation Date: 10/29/2017 BACKGROUND The patient is a 57 year old male admitted med/surg following a seizure related to alcohol withdrawal. An ST evaluation was warranted to analyze cognitive linguistic status to determine pt safety and independence to assist with release and placement decisions. Primary Medical Diagnosis: seizure, alcohol withdrawal Pain Scale (0-10): Pt denies pain LOC / Participation: alert, pleasant, cooperative. Follows instructions: yes Orientation: A&O x4. VOICE/ SPEECH Motor Speech: WFL Voice: Hoarse COGNITION/COMMUNICATION Pt was seen at bedside for cognitive linguistic assessment using the Anthony Cognitive Assessment (MOCA) and informal evaluation procedures. Pt obtained a 20/30 on the MOCA,consistent with a severity level of mild cognitive impairment (WNL=26/30). Deficits are primarily noted during executive function tasks ( trail making, clock drawing) and visuospatial tasks. Pt demonstrates potential for new learning across repeated practice opportunities. Relative areas of strength are noted during activities requiring delayed recall, language , and orientation. Pt executes basic instructions without error. More complex instructions require assistance through repetition and demonstration and the patient continued to make basic functional errors with the instructions. The patient was impulsive when completing test items which likely decreased his success with following instructions. On several occasions he began tasks before ST had completed full instructions and did not appear to allow any time for self reflection on strategy or for planning. During informal/interview evaluation, the pt provided information related to safety at home and in the community independently including safety in the kitchen, fire safety, and emergency response. He did not independently provide safety precautions for driving and meds management (e.g. avoiding night driving and ramsey hour driving, using meds box) but indicated he was receptive to adopting these precautions and verbalized why they may be beneficial. He reports he manages his bills independently and denies any difficultly with this. He denies any significant medical history with the exception of alcohol addiction and occasional symptoms of CRISTIANA. He demonstrates some confusion with comprehension of his hospitalization course, medical diagnoses, and plan of care. He speaks frankly and coherently about his alcohol addiction and provides specific steps he would like to take to address it including, possible pharmacological assistance, counseling, and joining a gym. He demonstrates appropriate humor and social interaction. SUMMARY Pt presents with mild cognitive linguistic deficits particularly related to executive function including following complex instructions, planning and self monitoring. Overall, results of the evaluation indicate the patient is safe for return to prior living situation as far as functional cognitive abilities are concerned. If returning home, he would likely benefit from HH ST and OT for continued assist with tasks requiring higher level executive function and to assist with techniques to assist with self monitoring / impulsivity for increased safety and independence. Results indicate the patient may demonstrate difficulty participating in the following IADL tasks: Recall and management of changes to medication without consistent use of external management strategies. Appointment attendance without consistent use of external management strategies. -Understanding complex medical information/instructions without support -Completing tasks with complex instructions requiring planning and self monitoring RECOMMENDATION HH with ST and OT services are warranted for tx to assist with skills development as described above. Referral to [facility] services Thank you for this referral. Please call [phone] (outpatient rehab) or [phone] ( inpatient rehab) to contact the PENCILLER. Respectfully, Rachel Lyles M.S., [facility]NA
[2017-10-29 16:53] VITALS: BP 113/76
[2017-10-30 02:38] VITALS: BP 120/69
[2017-10-30 07:45] VITALS: BP 103/71
[2017-10-30] MEDS: THIAMINE HCL 100 MG TAB PO SCH (08:31)
[2017-10-30] MEDS: FOLIC ACID 1 MG TAB PO SCH (08:32)
[2017-10-30] MEDS: NICOTINE 14 MG/24 HR PATCH TD SCH (08:32)
[2017-10-30] MEDS: HYDROCORTISONE 1% CR 28.35 GM TP SCH (08:32)
[2017-10-30] MEDS: AMOX/CLAV 875 MG TAB PO SCH (08:32)
[2017-10-30] MEDS: PANTOPRAZOLE SOD 40 MG TABEC PO SCH (08:32)
[2017-10-30] MEDS: ENOXAPARIN 40 MG/0.4ML SYR SC SCH (08:33)
[2017-10-30] MEDS ORDERED: AMOX1TAB9 PO (10:37)
[2017-10-30] MEDS ORDERED: THIA100T20 PO (10:37)
[2017-10-30] MEDS ORDERED: FOLI-68 PO (10:37)
--- NOTE | 2017-10-30 10:45 | Hospitalist Depart ---
Discharge Summary Reason for Hosp/Final Diag: (1) Aspiration pneumonia Status: Acute Hospital Course & Plan: He did suffer an aspiration event prior to intubation and possibly while on the ventilator. His chest x-ray did show a right lower lobe infiltrate, which has improved/resolved. He was on empiric treatment with Primaxin and vancomycin. He is afebrile and breathing comfortably. Cultures have been negative. It appears he has improved most likely secondary to good suctioning/secretion clearance. He was switched to oral Augmentin. He will continue an additional 5 days of antibiotics. He will follow up with PCP next week. He is still requiring 2L of oxygen. He will go home with oxygen. (2) Weakness Status: Acute Hospital Course & Plan: Secondary to prolonged ICU stay. Patient has been cleared from PT to go home with HH services. (3) Alcohol withdrawal seizure Hospital Course & Plan: It is reported that he had a seizure prior to admission. He was stable while on the propofol and midazolam. Now scoring low on CIWA, so is through the alcohol withdrawal. ST evaluated cognition status yesterday, HH services were recommended with further Speech therapy at home. (4) Hyperglycemia Hospital Course & Plan: He did have an elevated glucose at admission, but has not required coverage since then. His sliding scale has been discontinued. (5) Hyponatremia Hospital Course & Plan: Resolved with IV fluids. (6) Thrombocytopenia Status: Acute Hospital Course & Plan: Resolved. (7) Alcoholism Status: Acute Hospital Course & Plan: [facility] consulted for patient. He was given resources. He will follow up with [facility] and AA. We will have him continue on supplemental thiamine and folic acid. (8) Hypomagnesemia Hospital Course & Plan: Resolved with supplementation. (9) Seborrheic dermatitis Status: Chronic Hospital Course & Plan: Long standing issue involving his face and scalp. Will try hydrocortisone cream bid on the face. (10) Acute respiratory failure Status: Resolved Hospital Course & Plan: He was intubated on 10/20 for airway protection. He was safely extubated on 10/27. Departure Latest Vital Signs Vital Signs 10/27/17 10/30/17 10/30/17 13:30 07:45 09:41 Temp 99.4 Pulse 58 Resp 14 B/P (MAP) 103/71 (82) Pulse Ox 92 O2 Delivery Nasal Cannula O2 Flow Rate 2.0 FiO2 50.0 Weight (Pounds): 166 Weight (Ounces): 5.0 Result Diagram: 10/28/1740 10/28/17 0540 Condition: Improved Discharge: Home, Home Health PT/OT Follow Up For: PT For Strengthening, OT For ADL's, ST Evaluation and Treat Home Health RN Follow Up For: Nursing Assessment Home Health DETAIL MAKER AND FITTER Follow Up For: ADL Assistance Discharge Instructions Home Meds Active Scripts Thiamine Hcl (VITAMIN B-1) 100 Mg Tablet, 100 MG PO QDAY, #30 TAB Prov:JORGE GARAY [facility] 10/30/17 Folic Acid (FOLIC ACID) 1 Mg Tablet, 1 MG PO QDAY, #30 TAB Prov:MARCO GARAYACE Jessi [facility] 10/30/17 Amoxicillin/Potassium Clav (AMOX TR-K CLV 875-125 MG TAB) 1 Each Tablet, 875 MG PO BIDBS for 5 Days, #10 TAB Prov:JORGE GARAY [facility] 10/30/17 Reported Medications Calcium Carbonate (TUMS) 200 Mg Tab.chew, 200 MG PO Y for HEARTBURN, TAB.CHEW 10/20/17 Diet: Regular Activity: As Tolerated, With Walker Special Instructions: Follow up Next week on FridayNovember 04 at 12:45PM with Dr Weinstein Copies to: FRANCISCO WEINSTEIN MD Venous Thromboembolism Antithrombotics Is Pt On Any Antithrombotics?: Yes [id number] Certification Face to Face Home Health Certification Institutional Provider conducted the [id number] encounter. Electronic Undersigning Physician Certifies Home Health. I certify that the patient has been under my care and that I had a [id number] encounter that meets the physician [id number] encounter requirements with this patient. This patient is home-bound due to safety issues and continues to require assistance with ADL's. I certify that based on my findings, that Nursing, Aides and the following Home Health services are medically necessary. Medical Necessity: Nursing, Rehab Date Face to Face Conducted: Oct 30, 2017 Problem Qualifiers (1) Alcohol withdrawal seizure: Complication of substance-induced condition: with delirium Qualified Codes: F10.231 - Alcohol dependence with withdrawal delirium JORGE GARAY [facility] Oct 30, 2017 10:45
== END 2017-10-30 11:20 | disposition home or self-care (01) | DRG 207 ==
LOC: ER 10:24 → ICU 15:23 → MED 10-28 05:45
PROVIDERS: ADMIT Internal Medicine; ATTEND Internal Medicine
PROC: 0BH17EZ Insertion of Endotracheal Airway into Trachea, Via Natural or Artificial Opening (ICD-10-PCS; principal; 2017-10-20)
PROC: 5A1955Z Respiratory Ventilation, Greater than 96 Consecutive Hours (ICD-10-PCS; 2017-10-20)
PROC: 05HM33Z Insertion of Infusion Device into Right Internal Jugular Vein, Percutaneous Approach (ICD-10-PCS; 2017-10-21)
DX: J69.0 Pneumonitis due to inhalation of food and vomit (principal); J96.00 Acute respiratory failure, unspecified whether with hypoxia or hypercapnia; F10.231 Alcohol dependence with withdrawal delirium; E87.1 Hypo-osmolality and hyponatremia; E83.42 Hypomagnesemia; R56.9 Unspecified convulsions; R73.9 Hyperglycemia, unspecified; D69.6 Thrombocytopenia, unspecified; L21.9 Seborrheic dermatitis, unspecified
CPT/HCPCS: 36415; 36416; 36600; 70450; 71045; 71260; 72125; 72129; 72132; 74177; 80202; 80305; 80320; 80329; 81001; 82040; 82247; 82310; 82374; 82435; 82565; 82803; 82947; 82948; 83036; 83735; 84075; 84132; 84155; 84295; 84443; 84450; 84460; 84520; 85025; 85610; 87040; 87070; 87205; 93005; 94002; 94003; 94770; 97161; 97165; 99285; C9113; J0295; J0330; J0743; J1650; J2060; J2250; J2704; J3370; J3411; J3475; J3480; J3490; J7030; J7040; J7050; Q9967

== ENCOUNTER → 2017-10-20 | Outpatient (CLI) | payer MEDICARE, MEDICAID ==
[~2017-10-20] MED LIST: AMOX1TAB9 PO; ARIP5TAB28 PO; BUPR-149 PO; CALC-515 PO; CEP500 PO; CEPH500C24 PO; DESV50TA9 PO; DIA5 PO; DIAZ-305 PO; ESCI20TA38 PO; FOLI-68 PO; GABA-490 PO; HYDR-4228 PO; HYDR-4309 PO; HYDR28.415 TP; HYDR50CA47 PO; IBUP600T22 PO; LOR5 PO; LOR5/325 PO; MELO-150 PO; MIRT-1 PO; MULT-7; MULT1TAB64 PO; PAN40 PO; PAR20 PO; PARO-242 PO; PENI-22 PO; QUET25TA30 PO; QUET50TA21 PO; SERT-1 PO; SERT-181 PO; THIA100T20 PO; THIA100T62 PO; TRAZ-133 PO; UBID100C48 PO
[2017-10-21 16:33] VITALS: BMI 28.5
== END ==
LOC: AMB 09:26
PROVIDERS: ATTEND Nurse Practitioner
DX: R41.82 Altered mental status, unspecified (principal); F10.20 Alcohol dependence, uncomplicated
CPT/HCPCS: A0425; A0429

== ENCOUNTER → 2017-11-12 | Outpatient (CLI) | payer MEDICARE, MEDICAID ==
[2017-10-21 16:33] VITALS: BMI 28.5
[~2017-11-12] MED LIST changes: +AMOX1TAB9 PO; +CALC-515 PO; +MULT1TAB64 PO; +THIA100T20 PO
[2017-11-12 11:07] LABS: PLATELET COUNT, AUTOMATED 342 K/uL (150-450)
[2017-11-12 11:44] LABS: LDL CHOLESTEROL 202 mg/dl
== END ==
LOC: LAB 10:46
PROVIDERS: ATTEND Internal Medicine
DX: Z12.5 Encounter for screening for malignant neoplasm of prostate (principal); F10.20 Alcohol dependence, uncomplicated; J69.0 Pneumonitis due to inhalation of food and vomit; F10.239 Alcohol dependence with withdrawal, unspecified; E83.52 Hypercalcemia
CPT/HCPCS: 36415; 81001; 83735; 84443; 85025; G0103; 82040; 82247; 82310; 82374; 82435; 82465; 82565; 82947; 83718; 84075; 84132; 84153; 84155; 84295; 84450; 84460; 84478; 84520

== ENCOUNTER → 2017-11-24 | Outpatient (CLI) | payer MEDICARE, MEDICAID ==
[2017-10-21 16:33] VITALS: BMI 28.5
--- NOTE | 2017-11-24 14:55 | RADIOLOGY IMAGING REPORT ---
FACILITY: [facility] PATIENT NAME: Richar Bermeo : 1960 MR: [id number] V: [id number] EXAM DATE: ORDERING PHYSICIAN: FRANCISCO PEREZ TECHNOLOGIST: [place] [facility] [place] Richar Bermeo : 1960 Visit/Account:[id number] Date of Sevice: 11/24/2017 Exam type: CHEST PA AND LAT History: f/u. aspiration pneumonia Comparison: October 27, 2017. Findings: There is no evidence of acute effusions, infiltrates or edema. Cardiac silhouette is normal in size. Trachea is in midline. There are multiple old appearing right-sided rib fractures and multiple mil d compression fractures in the thoracic spine IMPRESSION: 1. No acute cardiac primary process is seen Report Dictated By: Angelique Dorman MD at 11/24/2017 2:47 PM Report E-Signed By: Angelique Dorman MD at 11/24/2017 2:50 PM WSN:[email or web address]
== END ==
LOC: RAD 13:53
PROVIDERS: ATTEND Internal Medicine
DX: J69.0 Pneumonitis due to inhalation of food and vomit (principal)
CPT/HCPCS: 71046

== ENCOUNTER → 2017-12-30 | Outpatient (CLI) | payer MEDICARE, MEDICAID ==
[2017-10-21 16:33] VITALS: BMI 28.5
[~2017-12-30] MED LIST changes: +FLU60SYR36 IM; +PNEI IJ
--- NOTE | 2017-12-30 13:06 | RADIOLOGY IMAGING REPORT ---
FACILITY: [facility] - [place] PATIENT NAME: Richar Bermeo : 1960 MR: [id number] V: [id number] EXAM DATE: ORDERING PHYSICIAN: FRANCISCO PEREZ TECHNOLOGIST: Location: [facility] Patient: Richar Bermeo : 1960 Visit/Account:[id number] Date of Sevice: 12/30/2017 DEXA Scan Clinical history: Thoracic compression fracture.. Comparison: None. LUMBAR SPINE: The bone mineral density (BMD) measured from L1-L4 correlates with a Z-score of -1.9 and a T-score of -2.4 which is osteopenic bordering on osteoporotic as defined by the World Health Organization. The corresponding risk of fracture in the lumbar spine is significantly increased compared with a young adult reference population. HIP: Bone mineral density (BMD) measured in the Left total hip region correlates with a Z-score of 0.5 and a T-score of -1.0. The T-score of the femoral neck is -0.9. The lower of the two T scor es is borderline osteopenic which is defined as defined by the World Health Organization. The emeka esponding risk of fracture in the hip is moderately increased compared with a young adult reference p opulation. Bone mineral density (BMD) measured in the Left Femoral Neck region measures 0.956 g/cm?. Impression: 1. Lumbar spine: Osteopenic bordering on osteoporotic. 2. Left Total Hip: Borderline osteopenic. The next DEXA scan of this patient should include the following sites: L1-L4 and Left hip. FRAX? WHO Fracture Risk Assessment Tool link: <http://www.shef.ac.uk/FRAX/tool.jsp?locationValue=9> PLEASE NOTE: 1) The World Health Organization defines low BMD as follows: T-score Normal > -1 Osteopenia < -1 and > -2.5 Osteoporosis < -2.5 without fractures Established osteoporosis < -2.5 with fractures 2) In general, you may wish to consider: Diagnosis Treatment Follow-up DEXA Normal BMD Prevention 2-3 years Osteopenia Prevention/therapy 1-2 years Osteoporosis Therapy Yearly 3) Fracture risk estimated from the T-score is more accurate for vertebral fractures (often spontane ous) than for hip fractures. Report Dictated By: Sergey Ribeiro MD at 12/30/2017 12:59 PM Report E-Signed By: Sergey Ribeiro MD at 12/30/2017 1:02 PM WSN:[email or web address]
--- NOTE | 2017-12-30 13:13 | RADIOLOGY IMAGING REPORT ---
FACILITY: [facility] - [place] PATIENT NAME: Richar Bermeo : 1960 MR: [id number] V: [id number] EXAM DATE: ORDERING PHYSICIAN: FRANCISCO PEREZ TECHNOLOGIST: Location: [facility] Patient: Richar Bermeo : 1960 Visit/Account:[id number] Date of Sevice: 12/30/2017 THORACIC SPINE 3 VIEWS HISTORY: COMPRESSION FRACTURE OF THE BACK Additional history: None COMPARISON: Comparison the thoracic spine CT dated 10/20/2017 FINDINGS: Previous CT demonstrated very mild concavities in the endplates of T4, T5, T6. This is unchanged but there is no evidence of loss of height or developing compression fractures. There is minimal levoco nvex curvature lower thoracic spine. IMPRESSION: Without concavities in the endplates of T4-T6 might represent small Schmorl's nodes (intravertebral d isc herniation) but may be developmental. There are no compression fractures Report Dictated By: Sergey Ribeiro MD at 12/30/2017 1:02 PM Report E-Signed By: Sergey Ribeiro MD at 12/30/2017 1:09 PM WSN:[email or web address]
== END ==
LOC: RAD 11:20
PROVIDERS: ATTEND Internal Medicine
DX: S22.000A Wedge compression fracture of unspecified thoracic vertebra, initial encounter for closed fracture (principal); M85.80 Other specified disorders of bone density and structure, unspecified site
CPT/HCPCS: 72072; 77080

== ENCOUNTER → 2018-03-17 | Outpatient (CLI) | payer MEDICARE, MEDICAID ==
[2017-10-21 16:33] VITALS: BMI 28.5
[~2018-03-17] MED LIST changes: +CHOL100052 PO; -HYDR-4309 PO; +HYDR-653 PO
[2018-03-17 14:26] LABS: LDL CHOLESTEROL 151 mg/dl
== END ==
LOC: LAB 13:59
PROVIDERS: ATTEND Internal Medicine
DX: E78.00 Pure hypercholesterolemia, unspecified (principal); S22.000A Wedge compression fracture of unspecified thoracic vertebra, initial encounter for closed fracture
CPT/HCPCS: 36415; 82040; 82247; 82306; 82310; 82374; 82435; 82465; 82565; 82947; 83718; 84075; 84132; 84155; 84295; 84450; 84460; 84478; 84520